=== PATIENT | male | born 1945 | race Caucasian/White ===

== ENCOUNTER 2019-03-25 04:55 | Inpatient (IN) ==
[2019-03-19 13:21] LABS: Appearance,Urine CLEAR; Bilirubin,Urine NEG (NEG); Color,Urine YELLOW; Glucose,Urine (UA) NEGATIVE (NEG); Ketones,Urine 5/TR mg/dL (NEG); Leukocyte Esterase,Urine NEG /uL (NEG); Nitrate,Urine NEG (NEG); Protein,Urine NEG (NEG); Specific Gravity,Urine 1.024 (1.000-1.035); Urine Blood NEG mg/dL (<0.03)
[2019-03-19 15:44] LABS: Basophils # (Auto) 0 K/mcL (0.0-0.3); Basophils % (Auto) 0.4 % (0.0-2.0); Eosinophils # (Auto) 0.1 K/mcL (0.0-0.7); Eosinophils % (Auto) 1.3 % (0.0-7.0); Hematocrit 41.2 % (41.0-55.0); Hemoglobin 13.7 g/dL (13.5-16.5); Lymphocytes # (Auto) 1.5 K/mcL (1.5-4.8); Lymphocytes % (Auto) 23.3 % (15.5-49.0); Mean Cell Volume 91.7 fL (80.0-100.0); Mean Corpuscular HGB Conc 33.3 g/dL (31.0-36.0); Monocytes # (Auto) 0.6 K/mcL (0.1-0.9); Platelet Count 240 K/mcL (140-440); WBC 6.6 K/mcL (4.5-11.0)
[2019-03-19 15:59] LABS: INR 1.1 (0.9-1.1); Prothrombin Time 13.8 sec (11.9-14.5)
[2019-03-19 16:10] LABS: Blood Urea Nitrogen 20 mg/dl (8-23); Calcium 9.8 mg/dl (8.6-10.4); Carbon Dioxide 25 mmol/L (22-30); Chloride 101 mmol/L (96-108); Glomerular Filtration Rate 60; Glucose 84 mg/dL (70-105)
[2019-03-25] MEDS ORDERED: SCOPOLAMINE 1 PATCH PATCH TOPICAL PRN (05:00)
[2019-03-25] MEDS ORDERED: IPRATROPIUM/ALBUTEROL 3 ML AMPUL.NEB NEB PRN ×2 (05:00→08:29)
[2019-03-25] MEDS ORDERED: ACETAMINOPHEN 500 MG TABLET PO SCH (06:00)
[2019-03-25] MEDS ORDERED: PREGABALIN 75 MG CAPSULE PO SCH (06:00)
[2019-03-25] MEDS ORDERED: ceFAZolin 2 GM in DEXTROSE 5% IN WATER 50 ML IV SCH (06:00)
[2019-03-25] MEDS ORDERED: CELECOXIB 200 MG CAPSULE PO SCH (06:00)
[2019-03-25] MEDS ORDERED: TRANEXAMIC ACID 1,000 MG/10 ML VIAL IV ONE ×2 (07:45→08:58)
[2019-03-25] MEDS ORDERED: KETAMINE 100 MG/ML ML IV ONE (07:45)
[2019-03-25] MEDS ORDERED: DEXAMETHASONE 10 MG/ML VIAL IV ONE (07:45)
[2019-03-25] MEDS ORDERED: fentaNYL 250 MCG/5 ML VIAL IV ONE (07:45)
[2019-03-25] MEDS ORDERED: GLYCOPYRROLATE 0.2 MG/ML VIAL IV ONE (07:45)
[2019-03-25] MEDS ORDERED: LIDOCAINE HCL/PF 100 MG/5 ML SYRINGE IV ONE (07:45)
[2019-03-25] MEDS ORDERED: SUCCINYLCHOLINE 20 MG/ML ML IV ONE (07:45)
[2019-03-25] MEDS ORDERED: PROPOFOL 200 MG/20 ML VIAL IV ONE (07:45)
[2019-03-25] MEDS ORDERED: MIDAZOLAM 2 MG/2 ML VIAL IV ONE (07:45)
[2019-03-25] MEDS ORDERED: ONDANSETRON 4 MG/2 ML VIAL IV ONE (07:45)
[2019-03-25] MEDS ORDERED: GENTAMICIN SULFATE 800 MG/20 ML VIAL IR ONE (08:11)
[2019-03-25] MEDS ORDERED: LACTATED RINGERS 250 ML IV PRN (08:29)
[2019-03-25] MEDS ORDERED: BENZOCAINE/MENTHOL 1 LOZENGE PO PRN ×2 (08:29→08:58)
[2019-03-25] MEDS ORDERED: NALOXONE HCL 0.4 MG/ML VIAL IV PRN (08:29)
[2019-03-25] MEDS ORDERED: HYDROmorphone 2 MG/ML VIAL IV PRN ×2 (08:29→08:58)
[2019-03-25] MEDS ORDERED: LABETALOL 5 MG/ML ML IV PRN (08:29)
[2019-03-25] MEDS ORDERED: METHOCARBAMOL 1,000 MG/10 ML VIAL IV PRN (08:29)
[2019-03-25] MEDS ORDERED: ONDANSETRON 4 MG/2 ML VIAL IV PRN ×2 (08:29→08:58)
[2019-03-25] MEDS ORDERED: FLUMAZENIL 0.1 MG/ML ML IV PRN (08:29)
[2019-03-25] MEDS ORDERED: LACTATED RINGERS 1,000 ML IV SCH (08:30)
[2019-03-25] MEDS ORDERED: BUPIVACAINE W/EPI 0.5% 50 ML VIAL IJ ONE (08:43)
[2019-03-25] MEDS ORDERED: TEMAZEPAM 15 MG CAPSULE PO PRN (08:58)
[2019-03-25] MEDS ORDERED: FLEETS ADULT ENEMA PR PRN (08:58)
[2019-03-25] MEDS ORDERED: oxyCODONE/APAP 5/325MG TABLET PO PRN (08:58)
[2019-03-25] MEDS ORDERED: ACETAMINOPHEN 325 MG TABLET PO PRN (08:58)
[2019-03-25] MEDS ORDERED: POLYETHYLENE GLYCOL 3350 17 GM PACKET PO PRN (08:58)
[2019-03-25] MEDS ORDERED: MAGNESIUM HYDROXIDE 30 ML ORAL.SUSP PO PRN (08:58)
[2019-03-25] MEDS ORDERED: BISACODYL 10 MG SUPP.RECT PR PRN (08:58)
--- NOTE | 2019-03-25 08:58 | Brief Operative Note ---
Date of procedure: 03/25/19 Pre-op diagnosis: Right shoulder fx and djd and rca Post-op diagnosis: same Procedure: Right shoulder reverse tsa with bicep tenodesis Grafts/Implants: Yes Anesthesia: GETA Complications Description: 03/25/19 08:57 none Surgeon: Alhaji Tovar Visual Effects Editor: Scott John Estimated blood loss (cc): 50 Specimens Removed/Pathology: none sent Condition: stable Disposition: PACU
[2019-03-25] MEDS ORDERED: NITROGLYCERIN 0.4 MG TAB.SUBL SL PRN (09:01)
--- NOTE | 2019-03-25 09:36 | Operative Note ---
DATE OF OPERATION: 03/25/2019 PREOPERATIVE DIAGNOSIS: Right reverse total shoulder for rotator cuff arthropathy and severe degenerative arthritis. POSTOPERATIVE DIAGNOSIS: Right reverse total shoulder for rotator cuff arthropathy and severe degenerative arthritis. PROCEDURE: Right reverse total shoulder. INDICATION FOR PROCEDURE: A 73-year-old with history of Parkinson's and a proximal humerus fracture on the right side. This has failed all conservative care, casting over the last year, with continued pain and immobility. 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 For this reason, we proceeded with surgery. SURGEON: Alhaji Tovar MD ELECTRICAL MAINTENANCE ENGINEER: Scott John PA-C. This provider's expertise and technical skill were required throughout the case. The PA assisted with preoperative coordination, intraoperative retraction, wound closure, dressing and splint application, as well as postoperative documentation and care coordination. ANESTHESIA: General LMA anesthesia. COMPLICATIONS: None. ESTIMATED BLOOD LOSS: About 50 mL. No blood products were given. IV ANTIBIOTICS: Tranexamic acid as well as preoperative antibiotics were given. IMPLANTS: [place] implants with a standard thickness poly, a 36 mm glenosphere with 2 mm of offset and 2 mm of the eccentricity, a metaglene and 3 peripheral screws measuring 32, 32 and 28, and a central screw measuring 32. DESCRIPTION OF PROCEDURE: The patient was brought to the operating room and put to sleep with general LMA anesthesia. Once asleep, the patient had the right arm sterilely prepped and draped in the usual sterile fashion. A timeout was performed. We confirmed this as the operative site by initials, consent form and x-rays. Pre-op antibiotics and tranexamic acid were given. Once done, we then placed [place] over the skin and a stockinette over the hand. We made a deltopectoral approach, and identified the cephalic vein which was retracted laterally. A Lewis retractor was placed. We subluxed the humeral head with severe deformity to the medial side where we were able to make the neck cut and align the humeral head with the shaft. Once this was made, we then subluxed the head posteriorly and we were able to prepare the glenoid 360 degree capsular release of the biceps tendon and a biceps tenodesis of the biceps tendon to the pectoralis major with an Ethibond suture. Capsular release was performed. We drilled centrally with a guide pin and then reamed up with a 40 mm reamer. We placed a metaglene 28 mm in diameter with a 32 mm central screw. Peripheral screws were measured at 32, 32 mm each and 28 mm; excellent purchase. Once placed, we then placed the glenosphere 36 mm with 2 mm of offset, 2 mm of eccentricity and tapped into place. We prepared the humerus which was broached up to the size 10 mm stem. This was somewhat difficult to countersink because of the tightness of the shoulder and immobility. Once done, we were able to trial the component. This fit very nicely and he achieved full motion. We irrigated thoroughly and placed a small amount of cement down the canal for the stem to be fixed because of the poor bone quality. The 10 mm porous ingrowth stem was tapped into place with a standard thickness poly. This was reduced without difficulty and taken through range of motion once more, achieving full motion. We irrigated thoroughly and then closed the deltopectoral interval after thorough irrigation. The skin was closed with 2-0 Vicryl and 3-0 Monocryl as well as adhesive closure. The patient tolerated this well without complication. [place]joy sling was fitted and given to the patient. RBH:curtis Job ID: [id number] Doc ID: [id number] Alhaji Tovar MD
[2019-03-25] MEDS: fentaNYL 100 MCG/2 ML VIAL IV PRN ×3 (09:38→09:45)
--- NOTE | 2019-03-25 09:58 | XRay Report ---
HISTORY: Postop right shoulder Findings: Patient has well-positioned reverse right shoulder prosthesis. On one of the two images there is a cluster of very small calcifications above the prosthetic component of the humeral head. No donor site is seen. There is no fracture. IMPRESSION: Well-positioned right shoulder prosthesis Interpreted and Authenticated by: Edmund Wong 03/25/19
[2019-03-25] MEDS: LACTATED RINGERS 1,000 ML IV SCH ×3 (10:32→21:16)
[2019-03-25] MEDS: KETOROLAC 15 MG/ML VIAL IV PRN ×2 (10:33→17:27)
[2019-03-25] MEDS: DOCUSATE SODIUM 100 MG CAPSULE PO SCH ×2 (10:34→21:00)
[2019-03-25] MEDS: CARBIDOPA/LEVODOPA 25/100 TABLET PO SCH ×2 (10:42→17:29)
[2019-03-25] MEDS: CARBIDOPA/LEVODOPA CR 25/100 TABLET PO SCH ×2 (10:43→17:29)
[2019-03-25] MEDS: 0.9 % SODIUM CHLORIDE 10 ML SYRINGE IV SCH ×2 (14:23→21:01)
[2019-03-25] MEDS: ceFAZolin 1 GM VIAL IV SCH ×2 (15:36→23:40)
[2019-03-25] MEDS: HYDROcodone/APAP 10/325MG TABLET PO PRN (19:51)
[2019-03-25] MEDS ORDERED: SENNOSIDES 1 TABLET PO SCH (21:00)
[2019-03-26] MEDS: HYDROcodone/APAP 10/325MG TABLET PO PRN ×2 (02:27→06:44)
[2019-03-26] MEDS: LACTATED RINGERS 1,000 ML IV SCH (05:32)
[2019-03-26] MEDS: 0.9 % SODIUM CHLORIDE 10 ML SYRINGE IV SCH ×2 (06:35→14:59)
--- NOTE | 2019-03-26 07:25 | Orthopedic Progress Note ---
Subjective Patient information: Note initiated : 03/26/19 at 7:24 am Service Date, if different from initiated Date: [] Patient: Jeffry Sharif 73 y/o M admitted on 03/25/19 for Right Total Shoulder Arthroplasty w/Bicep Tendon. Chief Complaint: [Pt is stable this morning on post operative day 1 without any significant concerns or complaints. Patients vital signs have remained stable. Patients dressing is dry and is grossly intact from a amira rovascular and motor standpoint. Patients 10 point ROS is otherwise negative. ] Objective Vital signs: Vital Signs Temp Pulse Resp BP BP BP Pulse Ox 03/26/19 04:00 98.0 F 72 16 111/56 94 03/25/19 23:30 97.8 F 98 H 12 131/62 95 03/25/19 19:41 97.5 F 98 H 12 131/62 96 03/25/19 15:38 97.6 F 93 H 14 153/64 94 03/25/19 13:00 97.3 F 105 H 12 111/65 97 03/25/19 12:05 92 H 130/69 96 03/25/19 11:35 100 H 140/74 98 03/25/19 11:05 89 122/62 95 03/25/19 10:50 86 118/60 95 03/25/19 10:35 92 H 126/55 97 03/25/19 10:30 91 H 14 126/55 96 03/25/19 10:05 103 H 173/71 96 03/25/19 09:53 97.4 F 93 H 10 L 144/59 98 03/25/19 09:38 97.8 F 101 H 14 187/74 98 03/25/19 09:23 101 H 12 166/71 100 03/25/19 09:13 96.6 F L 90 10 L 164/68 99 Intake and Output 03/25/19 03/26/19 03/26/19 21:59 05:59 13:59 Intake Total 1360 923 Output Total 1200 675 Balance 160 248 Intake: IV 1000 698 Lactated Ringers 1,000 ml @ 100 1000 698 mls/hr IV .Q10H IFTIKHAR Rx#: [id number] Oral 360 225 Output: Urine Catheter Amount 800 Straight 800 Void Amount 400 675 Other: Meal Dinner Percent of Meal Consumed 100% Urine Appearance Clear Clear Urine Color Bright Yellow Bright Yellow Urine Odor Normal Weight 175 lb 12.8 oz Intake & Output: Intake & Output 03/25/19 03/26/19 03/26/19 21:59 05:59 13:59 Intake Total 1360 923 Output Total 1200 675 Balance 160 248 Weight 175 lb 12.8 oz Intake: IV 1000 698 Lactated Ringers 1,000 ml @ 100 1000 698 mls/hr IV .Q10H IFTIKHAR Rx#: [id number] Oral 360 225 Output: Urine Catheter Amount 800 Straight 800 Void Amount 400 675 Other: Meal Dinner Percent of Meal Consumed 100% Urine Appearance Clear Clear Urine Color Bright Yellow Bright Yellow Urine Odor Normal Incision: Yes healing Incision clean and dry: Yes Dressing: Yes clean Weight bearing status: full Neurological exam IM: Yes motor sensory intact, Yes neurovascular intact Extremities exam IM: Yes neurovascular intact - Labs CBC & BMP: 03/19/19 12:00 03/19/19 11:59 Labs: Orthopedic Labs 03/19/19 03/19/19 11:59 11:59 PT 13.8 INR 1.1 APTT 30 03/19/19 12:00 Hgb 13.7 Hct 41.2 Assessment and Plan (1) History of reverse total replacement of right shoulder joint The patient has been educated regarding dressing care, Physical Therapy recommendations, home exercises, restrictions, and follow up appointments. The patient has had all necessary DME prescribed. The patient has remained relatively stable during their hospital course. Status: Acute
--- NOTE | 2019-03-26 07:27 | Discharge Summary ---
Ortho Discharge - TSA - Patient Instructions Diet: Regular Diet Activity: activity as tolerated, weight bearing as tolerated Total Shoulder Protocol: Leave immobilizer in place except for bathing and ROM. Abduction pillow. Continue to wear sling until seen by physician. [place] Pendulum : These exercises use momentum produced by your body to move your shoulder joint. Bend your knees and shift your weight to your front leg, then back, allowing your arm to swing in the same directions. Using the same technique, alternately shift your weight between your right and left legs, allowing your arm to swing from side to side. These exercises are also performed in counterclockwise and clockwise circular motions. Typically these exercises are performed several times per day, for a set number repetitions or minutes, such as 20 times in a row or 5 minutes at a time. Dressing Care: May shower in 2 days - Problem Maintenance (1) History of reverse total replacement of right shoulder joint Status: Acute - Follow Up Plan Disposition: Home, Self-Care Prognosis: Good Rehab Potential: Good I certify that the patient requires SNF services: No Overall status at discharge: patient is progressing back to baseline - Orders For Discharge Prescriptions: Docusate Sodium [Colace] 100 mg PO BID #60 capsule HYDROcodone/APAP 10/325MG [[place] 10-325Mg] 1 - 2 tab PO Q4HP PRN #75 tablet PRN Reason: Per Pain Protocol
[2019-03-26] MEDS: DOCUSATE SODIUM 100 MG CAPSULE PO SCH (08:17)
[2019-03-26] MEDS ORDERED: VITAMIN D3 1,000 UNIT TABLET PO SCH (09:00)
[2019-03-26] MEDS ORDERED: CLOPIDOGREL 75 MG TABLET PO SCH (09:00)
[2019-03-26] MEDS ORDERED: ASPIRIN 81 MG TAB.CHEW PO SCH (09:00)
[2019-03-26] MEDS ORDERED: EZETIMIBE 10 MG TABLET PO SCH (09:00)
[2019-03-26] MEDS ORDERED: FLU VACC QS2019-20(6MOS UP)/PF 60 MCG/0.5 ML SYRINGE IM ONE (10:00)
[2019-03-26] MEDS: CARBIDOPA/LEVODOPA CR 25/100 TABLET PO SCH ×2 (10:17→12:25)
[2019-03-26] MEDS: CARBIDOPA/LEVODOPA 25/100 TABLET PO SCH ×2 (10:17→12:25)
[2019-03-26] MEDS: KETOROLAC 15 MG/ML VIAL IV PRN (12:25)
[2019-03-26] MEDS ORDERED: SIMVASTATIN 40 MG TABLET PO SCH (21:00)
[2019-03-27] MEDS ORDERED: DOMPERIDONE 10 MG PO SCH (09:00)
== END 2019-03-26 14:20 | disposition home or self-care (01) | DRG 483 ==
LOC: MEDSUR 04:55
PROVIDERS: ADMIT Orthopaedic Surgery; ATTEND Orthopaedic Surgery

== ENCOUNTER 2020-01-05 12:48 | Inpatient (IN) ==
--- NOTE | 2020-01-05 13:44 | XRay Report ---
INDICATION: fall 5 days ago. pain at mid axilla left TECHNIQUE: PA chest x-ray. Oblique views of the left ribs. COMPARISON: None. FINDINGS: Fractures of the left fourth and fifth ribs posterolaterally. These are slightly displaced. Large left pneumothorax with virtually complete collapse of the left lung. There is only a small left pleural effusion consistent with hemothorax No evidence for tension pneumothorax. Right lung is normal. Heart size and mediastinum are normal. IMPRESSION: 1. Fractures of the left fourth and fifth ribs 2. Large left pneumothorax with virtually complete collapse of the left lung 3. Small left hemothorax 4. No tension pneumothorax. Interpreted and Authenticated by: Zach Perdomo 01/05/20
--- NOTE | 2020-01-05 13:51 | Emergency Department Note ---
HPI General Chief complaint: Rib Pain Stated complaint: rib pain Time Seen by Provider: 01/05/20 17:53 Source: patient and family Mode of arrival: ambulatory Limitations: no limitations History of Present Illness HPI Narrative: Narrative: 74-year-old male patient presents emergency department accompanied by his with chief complaint of persistent left chest wall pain x5 days. Patient has known history of Parkinson's disease. He got up in the middle the night 5 days ago and stumbled. During this time he fell onto a hardwood floor. This caused exquisite pain to his left chest wall. He has been treating at home with occasional doses of acetaminophen and ibuprofen without relief. He denies hitting his head or loss of consciousness. ROS: Denies systemic illness, fever, sweats, chills. Denies headaches, tinnitus, or vision changes. Denies runny nose, sinus congestion, or cough. Denies shortness of breath. Denies retrosternal chest pain or palpitations. Denies abdominal pain, nausea, vomiting, or diarrhea. Denies dysuria, hematuria, urinary frequency, or urinary urgency. Admits to generalized weakness. Related Data Home Medications Medication Instructions Recorded Confirmed aspirin 81 mg PO DAILY 03/18/19 01/05/20 clopidogrel 75 mg PO DAILY 03/18/19 01/05/20 ezetimibe 10 mg PO Q48 03/18/19 01/05/20 lorazepam 1 mg PO DAILYP PRN 03/18/19 01/05/20 nitroglycerin 0.4 mg SL PRN PRN 03/18/19 01/05/20 simvastatin 80 mg PO Q48@2100 03/18/19 01/05/20 Domperidone 1 tab PO BID 03/19/19 01/05/20 carbidopa-levodopa 1 tab PO TID@0800,1200,1700 03/19/19 01/05/20 carbidopa-levodopa 1.5 tab PO TID@0800,1200,1700 03/19/19 01/05/20 ciprofloxacin HCl 250 mg PO BID 01/05/20 01/05/20 ondansetron HCl 4 mg PO BID 01/05/20 01/05/20 tolterodine 2 mg PO HS 01/05/20 01/05/20 Previous Rx's Medication Instructions Recorded docusate sodium 100 mg PO BID #60 cap 03/26/19 Allergies Allergy/AdvReac Type Severity Reaction Status Date / Time ticagrelor [From Brilinta] Allergy Severe Difficulty Verified 01/05/20 12:50 Breathing atorvastatin [From Lipitor] AdvReac Intermediate Muscle Pain Verified 01/05/20 12:50 metoprolol AdvReac Intermediate Confusion Verified 01/05/20 12:50 oxybutynin AdvReac Intermediate Hallucinati Verified 01/05/20 12:50 ng oxycodone AdvReac Mild Hallucinati Verified 01/05/20 12:50 ng Review of Systems ROS ROS Narrative: Narrative: All systems ED: reviewed and negative except as stated. 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, with behavioral disturbance (Acute) Coronary artery disease (Acute) Traumatic fracture of ribs of left side with pneumothorax (Acute) Closed traumatic fracture of ribs of left side with pneumothorax (Acute) Parkinson's disease (Acute) History of reverse total replacement of right shoulder joint (Acute) Medical History (Updated 01/05/20 @ 17:54 by Vipul Stein PA-C) Amputation of left hand (Acute) Carcinoma of prostate (Acute) Coronary artery disease (Acute) Degenerative joint disease (Acute) Loose total arthroplasty of both knees (Acute) Parkinson's disease (Acute) Traumatic amputation of left forearm (Acute) Surgical History (Updated 01/05/20 @ 16:31 by Cecily Otero MD) History of appendectomy (Acute) History of arthroplasty of right shoulder (Acute) Family History (Updated 01/05/20 @ 16:33 by Cecily Otero MD) Father , hypertension No problems noted. Mother No problems noted. Social History Smoking Status: Never smoker Exam Narrative Narrative: Narrative: General Limitations: no limitations General appearance: other (Well-developed, well-nourished, 74-year-old male patient sitting upright on the emergency room gurney in no acute respiratory distress. He is speaking softly but in complete sentences. No accessory muscle use. No nasal flaring.) Head Head: atraumatic and normocephalic Eye Eye: Present normal appearance, PERRL and EOMI; Absent scleral icterus and conjunctival injection ENT ENT: Present normal oropharynx and mucous membranes moist Neck Neck: Present trachea midline; Absent lymphadenopathy and thyromegaly Chest Chest: Present normal inspection, symmetric chest wall rise and tenderness (Left chest wall) Respiratory Respiratory: Present decreased breath sounds (Slight decreased breath sounds heard to the left versus right.); Absent normal lung sounds bilaterally, respiratory distress, rales/crackles, wheezes, stridor, accessory muscle use and prolonged expiratory phase Cardiovascular Cardiovascular: Present regular rate and normal rhythm; Absent systolic murmur and diastolic murmur Adbominal Abdominal: Present soft; Absent distention, tenderness, guarding, rebound, rigidity, organomegaly and mass Extremities Extremities: Present full ROM and normal capillary refill; Absent normal inspection (Left lower arm prosthetic in place.), tenderness and pedal edema Back Back: Present normal inspection and full ROM; Absent tenderness Neurological Neurological: Present alert and oriented X3 Psychiatric Psychiatric: Present normal affect and normal mood Skin Skin: Present warm, dry and normal color Course Course Course Narrative: Left rib x-rays were obtained upon arrival and read by the radiologist as fractures of the left fourth and fifth ribs. There is a large left pneumothorax with virtually complete collapse of left lung. Radiologist does mention a small developing left hemothorax. There is no evidence of tension pneumothorax. Patient is incredibly stable considering having his left lung completely collapsed. He is not hypoxic nor in any form of respiratory distress. He is hemodynamically stable with good vital signs. After noting the patient's large left pneumothorax I discussed the case briefly my collaborating physician (Dr. Martin) who advised me to discussed this with the radiologist for possible pigtail chest tube placement. I reached out to the radiologist (Dr. Perdomo) I discussed pigtail placement with him. He informed me that the radiology fluoroscopy device. He mentioned that reaching out to the general surgeon for blind insertion of a chest tube. With this in mind, I reached out to her general surgeon (Dr. Otero) and discussed chest tube placement with him. At this time requested chest tube placement equipment and that he would be down shortly to evaluate the patient. Routine admission laboratory studies were also ordered. Reevaluation(s) Reevaluation #1: Dr. Otero arrived at the patient's bedside and evaluate the patient. At this time Dr. Otero placed a chest tube into the left chest. Please see his dictated procedure note. Patient has remained incredibly stable throughout this entire time. Dr. Otero has consented to admit the patient here to our facility under his care. Post chest tube insertion radiographs are pending. At this time all further treatment decisions, modalities, and ultimate patient disposition is going be carried out by Dr. Otero. Vital Signs Vital signs: Vital Signs Temperature 97.9 F 01/05/20 12:55 Pulse Rate 104 H 01/05/20 12:55 Respiratory Rate 14 01/05/20 12:55 Blood Pressure 94/57 01/05/20 12:55 Pulse Oximetry (%) 95 01/05/20 12:55 Temperature 97.9 F 01/05/20 18:03 Pulse Rate 70 01/05/20 18:03 Respiratory Rate 14 01/05/20 18:03 Blood Pressure 154/79 01/05/20 18:03 Pulse Oximetry (%) 95 01/05/20 18:03 [facility] MDM Narrative Medical decision making narrative: Narrative: Radiology Data Radiology results reviewed: Yes I reviewed the patient's radiology results. Radiology results narrative: Ordering Physician: Nick Martin M.D. Date of Service: 01/05/20 Procedure(s): XR ribs LT w/ PA chest Accession Number(s): [id number] INDICATION: fall 5 days ago. pain at mid axilla left TECHNIQUE: PA chest x-ray. Oblique views of the left ribs. COMPARISON: None. FINDINGS: Fractures of the left fourth and fifth ribs posterolaterally. These are slightly displaced. Large left pneumothorax with virtually complete collapse of the left lung. There is only a small left pleural effusion consistent with hemothorax No evidence for tension pneumothorax. Right lung is normal. Heart size and mediastinum are normal. IMPRESSION: 1. Fractures of the left fourth and fifth ribs 2. Large left pneumothorax with virtually complete collapse of the left lung 3. Small left hemothorax 4. No tension pneumothorax. Interpreted and Authenticated by: Zach Perdomo 01/05/20 Discharge Plan Patient/Caregiver Discharge Instructions Pt seen by CENTRAL SCHEDULER/PA only: No (Dr. Martin / Dr. Otero) Clinical Impression: Closed traumatic fracture of ribs of left side with pneumothorax, Parkinson's disease Patient Disposition: Xfer As Inpt ([facility]) Condition: Good Discharge Date/Time: 01/05/20 17:55
--- NOTE | 2020-01-05 15:51 | XRay Report ---
INDICATION: chest tube for treatment of left pneumothorax TECHNIQUE: AP portable semiupright chest x-ray COMPARISON: None FINDINGS:Status post placement of a left-sided chest tube. Chest tube tip is overlying the left lung apex. Lungs:Left lung is reexpanded with some residual left basilar atelectasis. Pneumothorax is resolved. There is mild subcutaneous emphysema. Heart, vascular:No significant cardiomegaly. Pulmonary vascularity is normal. No pulmonary edema or pulmonary congestion Mediastinum, audrey:No mediastinal widening. No hilar mass Pleura:No residual left pneumothorax identified Skeletal:Negative. IMPRESSION: 1. Status post left chest tube placement. Complete evacuation of left pneumothorax 2. Mild residual left basilar atelectasis Interpreted and Authenticated by: Zach Perdomo 01/05/20
--- NOTE | 2020-01-05 16:20 | General Surgery Procedure Note ---
Date of procedure: Note initiated : 01/05/20 at 4:14 pm Service Date, if different from initiated Date: [] Pre-op diagnosis: left pneumothorax without tension Post-op diagnosis: other (left total pneumothorax) Procedure: left closed tube thoracostomy Findings: total collapse left lung without shift of mediastinum; Grafts/Implants: #24 straight [place] chest tube Anesthesia: local (1% Xylocaine intercostal block) Surgeon: Cecily Otero Pathology: none sent Description of procedure: I was asked to evaluate patient for pneumothorax. History given is that he fell 5 days ago and fractured his fourth and fifth rib. He had complained of increasing cough and shortness of breath along with rib pain. Chest x-ray shows total pneumothorax on the left Preop diagnosis--- left total pneumothorax Postoperative diagnosis-----left total pneumothorax Procedure----left closed tube thoracostomy Anesthesia--- 1% Xylocaine intercostal block Specimen--- none Complications none To follow-up chest x-rays shows complete reexpansion of the left lung except for small fluid collection at the base posteriorly Condition: stable Disposition: floor
[2020-01-05] MEDS ORDERED: ONDANSETRON 4 MG/2 ML VIAL IV PRN (16:40)
--- NOTE | 2020-01-05 16:40 | General Surg History&Physical ---
HPI History of Present Illness Patient information: Note initiated : 01/05/20 at 4:20 pm Service Date, if different from initiated Date: [] Patient: Jeffry Sharif a 74 y/o M admitted on for rib pain. Chief Complaint: [] Chief complaint: left chest pain and shortness of breath History of present illness: Mr. Sharif is a 74 year old M seen in the emergency room for evaluation of left total pneumothorax. Patient fell at home about 5 days ago and has had increasing left-sided chest pain and shortness of breath. He is also had increasing difficulty with cough. X-ray reveals total collapse of left lung. Patient was counseled and left closed tube thoracostomy was performed uneventfully. He is admitted and will be followed until he has no pleural air leak. Constitutional Constitutional: Present daytime sleepiness, fatigue, frequent falls, lethargy, malaise, weakness and weight loss Cardiovascular Cardiovascular: Present chest pain at rest, chest pain with activity, dyspnea, dyspnea on exertion, lightheadedness and palpatations Respiratory Respiratory: Present cough, dyspnea, pain on inspirtation and pain with cough Gastrointestinal Gastrointestinal: Absent abdominal pain, cramping, dyspepsia and heartburn Genitourinary Genitourinary: change in urinary stream, difficulty urinating, nocturia, urinary frequency, urinary hesitancy, urinary incontinence and urinary urgency Musculoskeletal Musculoskeletal: Present abnormal gait, arthralgias, limited range of motion, muscle cramps, muscle weakness, myalgias and stiffness Integumentary Integumentary: Present unusual bruising (abrasion right lower mota); Absent new lesions, pruritus and rash Neurological Neurological: Present abnormal gait, abnormal speech, disequilibrium, dizziness, focal weakness, frequent falls, lack of coordination, restless legs, tremor(s) and vertigo Psychiatric Psychiatric: Present abnormal sleep pattern, depression and memory loss Endocrine Endocrine: Present fatigue Hematologic/Lymphatic Hematologic/Lymphatic: Absent easy bleeding, easy bruising and lymphadenopathy Allergic/Immunologic Allergic/Immunologic: Absent tongue swelling, throat swelling, uticaria, wheezing and lip swelling PFSH PFSH All Active Problems (Updated 01/06/20 @ 13:01 by Cecily Otero MD) 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, with behavioral disturbance (Chronic) Coronary artery disease (Acute) Traumatic fracture of ribs of left side with pneumothorax (Acute) Closed traumatic fracture of ribs of left side with pneumothorax (Acute) Parkinson's disease (Acute) Medical History (Updated 01/06/20 @ 13:01 by Cecily Otero MD) Carcinoma of prostate (Acute) Coronary artery disease (Acute) Degenerative joint disease (Acute) Loose total arthroplasty of both knees (Acute) Parkinson's disease (Acute) Traumatic amputation of left forearm (Acute) Surgical History (Updated 01/06/20 @ 13:01 by Cecily Otero MD) Amputation of left hand (Acute) History of appendectomy (Acute) History of arthroplasty of right shoulder (Acute) 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 Mother No problems noted. Social History (Updated 01/05/20 @ 16:34 by Cecily Otero MD) household members: spouse housing: house lives independently: No marital status: education level: high school occupational status: disabled hx recent travel: No sexually active: No smoking status: Never smoker alcohol intake frequency: holiday/special occasion only substance use type: does not use MEDS/ALLERGIES Home Medications and Allergies Home Medications Medication Instructions Recorded Confirmed Type aspirin 81 mg PO DAILY 03/18/19 01/05/20 History clopidogrel 75 mg PO DAILY 03/18/19 01/05/20 History ezetimibe 10 mg PO Q48 03/18/19 01/05/20 History lorazepam 1 mg PO DAILYP PRN 03/18/19 01/05/20 History nitroglycerin 0.4 mg SL PRN PRN 03/18/19 01/05/20 History simvastatin 80 mg PO Q48@2100 03/18/19 01/05/20 History Domperidone 1 tab PO BID 03/19/19 01/05/20 History carbidopa-levodopa 1 tab PO TID@0800,1200,1700 03/19/19 01/05/20 History carbidopa-levodopa 1.5 tab PO TID@0800,1200,1700 03/19/19 01/05/20 History docusate sodium 100 mg PO BID #60 cap 03/26/19 01/05/20 Rx ciprofloxacin HCl 250 mg PO BID 01/05/20 01/05/20 History ondansetron HCl 4 mg PO BID 01/05/20 01/05/20 History tolterodine 2 mg PO HS 01/05/20 01/05/20 History Allergies Allergy/AdvReac Type Severity Reaction Status Date / Time ticagrelor [From Brilinta] Allergy Severe Difficulty Verified 01/05/20 12:50 Breathing atorvastatin [From Lipitor] AdvReac Intermediate Muscle Pain Verified 01/05/20 12:50 metoprolol AdvReac Intermediate Confusion Verified 01/05/20 12:50 oxybutynin AdvReac Intermediate Hallucinati Verified 01/05/20 12:50 ng oxycodone AdvReac Mild Hallucinati Verified 01/05/20 12:50 ng Physical Examination Vital Signs Vital signs: Temp Pulse Resp BP Pulse Ox 97.9 F 84 17 132/73 96 01/05/20 12:55 01/05/20 16:01 01/05/20 16:01 01/05/20 16:01 01/05/20 16:01 General physical appearance General physical exam: moderate distress and moderate pain Eyes Eye exam: PERRL and normal ocular movement ENT ENT exam: normal mucosa and decreased hearing Head Head exam IM: Present atraumatic, normal inspection and normocephalic Neck Neck exam: no masses, no bruits, trachea midline, no lymphadenopathy and no venous distension Cardiovascular Cardiovascular exam IM: Present normal rate and rhythm, RRR, +S1 and +S2; Absent JVD Respiratory Respiratory exam: normal expansion, normal respiratory effort, clear to percussion and clear to auscultation Abdomen Abdomen: Present soft, non tender and bowel sounds (normal bowel sounds) Integumentary Integumentary: Present other (superficial abrasion right lower extremity anteriorly) Neurologic Neurologic: Present other (cog-wheel rigidity of extremities;) Musculoskeletal Musculoskeletal: Present other (severely limited gait due to Parkinson's disease) Psychiatric Psychiatric: Present oriented to time, oriented to person, oriented to place and memory intact; Absent speech is normal Results Labs Result diagrams: 01/06/20 05:10 Labs: All other labs normal. A/P Assessment and plan (1) Closed traumatic fracture of ribs of left side with pneumothorax: Status: Acute (2) Parkinson's disease: Status: Acute (3) Coronary artery disease: Status: Acute Qualifiers: Coronary Disease-Associated Artery/Lesion type: due to calcified coronary lesion Qualified Code(s): I25.10 - Atherosclerotic heart disease of [place] coronary artery without angina pectoris; I25.84 - Coronary atherosclerosis due to calcified coronary lesion (4) Traumatic fracture of ribs of left side with pneumothorax: Status: Acute Narrative A/P Narrative: chest tube to continuous water seal and 20 cm suction Oral and IV analgesics as needed Daily chest x-ray as needed Continue home meds Time Spent With Patient Time: Total time spent is greater than 50% in coordination of care (as documented) at patient's floor/unit and/or counseling patient:
[2020-01-05] MEDS ORDERED: HYDROmorphone 0.5 MG/0.5 ML SYRINGE IV ONE (16:46)
[2020-01-05] MEDS ORDERED: NITROGLYCERIN 0.4 MG TAB.SUBL SL PRN (18:06)
[2020-01-05] MEDS: HYDROmorphone 1 MG/ML SYRINGE IV PRN ×2 (18:09→22:05)
[2020-01-05] MEDS: CARBIDOPA/LEVODOPA CR 25/100 TABLET PO SCH (18:30)
[2020-01-05] MEDS: oxyCODONE HCL 5 MG TABLET PO PRN (18:55)
[2020-01-05] MEDS ORDERED: ACETAMINOPHEN 1,000 MG/100 ML BOTTLE IV ONE (18:57)
[2020-01-05] MEDS ORDERED: ONDANSETRON HCL 4 MG PO SCH (21:00)
[2020-01-05] MEDS ORDERED: TOLTERODINE 2 MG CAP.XL.24H PO SCH (21:00)
[2020-01-05] MEDS ORDERED: ZOLPIDEM 5 MG TABLET PO PRN (21:00)
[2020-01-05] MEDS: DOMPERIDONE 10 MG PO SCH (21:01)
[2020-01-05] MEDS: SENNOSIDES 1 TABLET PO SCH (21:01)
[2020-01-05] MEDS: DOCUSATE SODIUM 100 MG CAPSULE PO SCH (21:01)
[2020-01-05] MEDS: CIPROFLOXACIN 250 MG TABLET PO SCH (21:01)
[2020-01-05] MEDS: 0.9 % SODIUM CHLORIDE 10 ML SYRINGE IV SCH (22:05)
[2020-01-06] MEDS: oxyCODONE HCL 5 MG TABLET PO PRN ×3 (00:04→10:38)
[2020-01-06] MEDS: ACETAMINOPHEN 1,000 MG/100 ML BOTTLE IV PRN ×3 (03:00→23:16)
[2020-01-06] MEDS: 0.9 % SODIUM CHLORIDE 10 ML SYRINGE IV SCH ×3 (04:29→20:37)
[2020-01-06 06:10] LABS: Basophils # (Auto) 0.04 K/mcL (0.00-0.30); Basophils % (Auto) 0.5 % (0.0-2.0); Eosinophils # (Auto) 0.35 K/mcL (0.00-0.70); Eosinophils % (Auto) 4.4 % (0.0-7.0); Granulocytes % (Auto) 69.3 % (38.0-78.0); Hematocrit 32.6 % (40.1-51.0); Hemoglobin 10.8 g/dL (13.7-17.5); Lymphocytes # (Auto) 1.27 K/mcL (1.50-4.80); Lymphocytes % (Auto) 15.8 % (15.5-49.0); Mean Cell Volume 89.6 fL (80.0-100.0); Mean Corpuscular HGB Conc 33.1 g/dL (31.0-36.0); Mean Platelet Volume 8.8 fL (7.4-10.4); Platelet Count 206 K/mcL (140-440); RBC 3.64 M/mcL (4.63-6.08); Red Cell Distribution Width 12.4 % (11.5-14.5)
--- NOTE | 2020-01-06 06:49 | XRay Report ---
INDICATION: follow-up of left pneumothorax TECHNIQUE: AP portable semiupright chest x-ray COMPARISON: Previous chest x-rays dated 01/05/2020 FINDINGS:There is a left-sided chest tube with its tip directed toward the apex. Lungs:Mild density at the left lung base consistent with volume loss. No significant interval change. Right lung remains negative. Heart, vascular:No significant cardiomegaly. Pulmonary vascularity is normal. No pulmonary edema or pulmonary congestion Mediastinum, audrey:No mediastinal widening. No hilar mass Pleura:No left pneumothorax identified. Skeletal:Patient has a history of left fourth and fifth rib fractures. Fifth rib fracture is obscured by overlying stimulator device. IMPRESSION: 1. No left pneumothorax 2. Mild left basilar density consistent with volume loss Interpreted and Authenticated by: Zach Perdomo 01/06/20
[2020-01-06] MEDS: CARBIDOPA/LEVODOPA 25/100 TABLET PO SCH ×2 (07:38→11:52)
[2020-01-06] MEDS: PANTOPRAZOLE 40 MG TABLET PO SCH (07:38)
[2020-01-06] MEDS: DOCUSATE SODIUM 100 MG CAPSULE PO SCH ×2 (08:05→20:36)
[2020-01-06] MEDS: CLOPIDOGREL 75 MG TABLET PO SCH (08:05)
[2020-01-06] MEDS: ASPIRIN 81 MG TAB.CHEW PO SCH (08:05)
[2020-01-06] MEDS: CARBIDOPA/LEVODOPA CR 25/100 TABLET PO SCH ×3 (08:05→17:35)
[2020-01-06] MEDS: CIPROFLOXACIN 250 MG TABLET PO SCH ×2 (08:05→20:37)
[2020-01-06] MEDS ORDERED: POLYETHYLENE GLYCOL 3350 17 GM PACKET PO SCH (09:00)
[2020-01-06] MEDS: EZETIMIBE 10 MG TABLET PO SCH (10:38)
[2020-01-06] MEDS: DOMPERIDONE 10 MG PO SCH ×2 (11:51→20:35)
--- NOTE | 2020-01-06 13:27 | General Surgery Progress Note ---
SUBJECTIVE Subjective Patient information: Note initiated : 01/06/20 at 1:21 pm Service Date, if different from initiated Date: [] Patient: Jeffry Sharif 74 y/o M admitted on 01/05/20 for rib pain. Chief Complaint: [] Interval history: Patient continues to improve. He still has mild cough but denies shortness of breath. He has moderate chest pain. His Pleur-evac shows a very small air leak. Chest x-ray today shows full expansion of his lung with decrease in the amount of pleural effusion. White blood count 8, hemoglobin 10.8, hematocrit 32.6. The patient is complaining of increasing difficulty with voiding and he has over 600 cc postvoid residual. He has a history of prostatitis and is on ciprofloxacin. His urine will be rechecked today. Constitutional Vitals: Vital Signs Temp Pulse Resp BP Pulse Ox 100.1 F H 100 H 18 134/72 91 01/06/20 12:00 01/06/20 12:00 01/06/20 12:00 01/06/20 12:00 01/06/20 12:00 Period Temp Pulse Resp BP Sys/Lopez Pulse Ox Last 24 Hr 97.8 F-100.1 F 68-102 14-22 100-157/59-83 91-96 Intake and Output 01/05/20 01/06/20 01/06/20 21:59 05:59 13:59 Intake Total 100 800 100 Output Total 10 207 Balance 90 593 100 Weight 173 lb 173 lb Patient Weight 01/07/20 05:59 Weight 173 lb Intake & Output: Intake & Output 01/05/20 01/06/20 01/06/20 21:59 05:59 13:59 Intake Total 100 800 100 Output Total 10 207 Balance 90 593 100 Weight 173 lb 173 lb Intake: IV 100 100 100 OFIRMEV 1,000 mg In 100 ml @ 0 100 mls/hr IV .K-MED ONE Rx#: [id number] Oral 700 Output: Chest Tube Drainage 7 Left Upper Lateral Chest 7 Void Amount 10 200 Other: Urine Appearance Clear Condom Clear Urine Color Dark Yellow Dark Yellow Condom Dark Yellow Urine Odor Normal Condom Normal Head Head exam: Present atraumatic, normal inspection and normocephalic Eye Eye exam: Present EOMI and normal appearance Pupils: Present normal accommodation and PERRL ENT ENT exam: Present normal exam and normal oropharynx Neck Neck exam: Present full ROM; Absent lymphadenopathy, tenderness and thyromegaly Respiratory Respiratory exam: Present CTAB; Absent rales, rhonchi and wheezes Cardiovascular Cardiovascular exam: Present RRR, +S1 and +S2; Absent gallop and JVD GI/Abdominal GI/Abdominal exam: Present normal bowel sounds and soft; Absent distended and tenderness Extremities Exam Extremities exam: Present full ROM and neurovascular intact; Absent pedal edema Back Exam Back exam: Absent tenderness Neurological Exam Neurological exam: Present abnormal gait, alert, CN II-XII intact and oriented X3; Absent motor sensory deficit and normal gait Psychiatric Psychiatric exam: Present anxious, depressed and flat affect Skin Skin exam: Absent erythema and rash A/P Assessment and plan (1) Closed traumatic fracture of ribs of left side with pneumothorax: Status: Acute (2) Coronary artery disease: Status: Acute Qualifiers: Coronary Disease-Associated Artery/Lesion type: due to calcified coronary lesion Qualified Code(s): I25.10 - Atherosclerotic heart disease of [place] coronary artery without angina pectoris; I25.84 - Coronary atherosclerosis due to calcified coronary lesion (3) 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, with behavioral disturbance: Status: Chronic Narrative A/P Narrative: Patient will be continued on waterseal with suction Inspire care will be added Urine analysis will be rechecked Follow-up chest x-ray tomorrow Flomax 0.4 mg twice daily Time Spent With Patient Time: Total time spent is greater than 50% in coordination of care (as documented) at patient's floor/unit and/or counseling patient:
[2020-01-06] MEDS ORDERED: [UNRECOGNIZED DRUG - OTHER] INH SCH (14:00)
[2020-01-06] MEDS: SIMVASTATIN 40 MG TABLET PO SCH (20:36)
[2020-01-06] MEDS: SENNOSIDES 1 TABLET PO SCH (20:36)
[2020-01-06] MEDS: TOLTERODINE 4 MG PO SCH (20:36)
[2020-01-06] MEDS: TAMSULOSIN 0.4 MG CAPSULE PO SCH (20:36)
[2020-01-07] MEDS: 0.9 % SODIUM CHLORIDE 10 ML SYRINGE IV SCH ×3 (05:01→20:08)
--- NOTE | 2020-01-07 06:53 | XRay Report ---
INDICATION: follow-up of left pneumothorax TECHNIQUE: AP portable semiupright chest x-ray COMPARISON: Previous chest x-rays dated 01/06/2020, 01/05/2020 FINDINGS:No change in position of left-sided chest tube. Lungs:Mild right basilar density consistent with atelectasis. Lungs are otherwise negative Heart, vascular:No significant cardiomegaly. Pulmonary vascularity is normal. No pulmonary edema or pulmonary congestion Mediastinum, audrey:No mediastinal widening. No hilar mass Pleura:No detectable left pneumothorax. Skeletal:Negative. IMPRESSION: 1. No left pneumothorax 2. Mild right basilar atelectasis Interpreted and Authenticated by: Zach Perdomo 01/07/20
[2020-01-07] MEDS: CARBIDOPA/LEVODOPA 25/100 TABLET PO SCH ×2 (07:21→12:03)
[2020-01-07] MEDS: CARBIDOPA/LEVODOPA CR 25/100 TABLET PO SCH ×3 (07:21→16:09)
[2020-01-07] MEDS: PANTOPRAZOLE 40 MG TABLET PO SCH (07:21)
[2020-01-07] MEDS ORDERED: POLYETHYLENE GLYCOL 3350 17 GM PACKET PO SCH (09:00)
[2020-01-07] MEDS: CIPROFLOXACIN 250 MG TABLET PO SCH ×2 (09:46→20:07)
[2020-01-07] MEDS: ASPIRIN 81 MG TAB.CHEW PO SCH (09:46)
[2020-01-07] MEDS: TAMSULOSIN 0.4 MG CAPSULE PO SCH ×2 (09:46→20:06)
[2020-01-07] MEDS: CLOPIDOGREL 75 MG TABLET PO SCH (09:47)
[2020-01-07] MEDS: DOMPERIDONE 10 MG PO SCH ×2 (09:47→20:05)
[2020-01-07] MEDS: DOCUSATE SODIUM 100 MG CAPSULE PO SCH ×2 (09:47→20:06)
[2020-01-07] MEDS ORDERED: BISACODYL 10 MG SUPP.RECT PR PRN (11:57)
[2020-01-07 12:24] LABS: Appearance,Urine HAZY; Bacteria,Urine 0 /hpf (0); Bilirubin,Urine NEG (NEG); Color,Urine YELLOW; Culture Indicated,Urine NO; Glucose,Urine (UA) NEGATIVE (NEG); Ketones,Urine 5/TR mg/dL (NEG); Leukocyte Esterase,Urine NEG /uL (NEG); Nitrate,Urine NEG (NEG); Protein,Urine 30 mg/dL (NEG); Urine Blood >=1.0 mg/dL (<0.03); Urine RBC > 182 /hpf (0-1); Urine Squamous Epithelial Cell 0 /hpf (0-4); Urine WBC 4 /hpf (0-4)
[2020-01-07] MEDS: ACETAMINOPHEN 1,000 MG/100 ML BOTTLE IV PRN (13:50)
--- NOTE | 2020-01-07 15:00 | General Surgery Progress Note ---
SUBJECTIVE Subjective Patient information: Note initiated : 01/07/20 at 2:56 pm Service Date, if different from initiated Date: [] Patient: Jeffry Sharif 74 y/o M admitted on 01/05/20 for rib pain. Chief Complaint: [] Principal diagnosis: left chest wall pain; left pneumothorax Interval history: patient is clinically stable however he still has significant chest wall pain from his rib fractures. There is a small air leak in his low back. It does not increase significantly with cough or Valsalva. Constitutional Vitals: Vital Signs Temp Pulse Resp BP Pulse Ox 98.8 F 97 H 12 95/60 94 01/07/20 12:00 01/07/20 12:00 01/07/20 12:00 01/07/20 12:00 01/07/20 12:00 Period Temp Pulse Resp BP Sys/Lopez Pulse Ox Last 24 Hr 97.8 F-99.0 F 80-114 12-16 95-185/60-80 93-94 Intake and Output 01/07/20 01/07/20 01/07/20 05:59 13:59 21:59 Intake Total 800 960 240 Output Total 581 Balance 219 960 240 Intake & Output: Intake & Output 01/07/20 01/07/20 01/07/20 05:59 13:59 21:59 Intake Total 800 960 240 Output Total 581 Balance 219 960 240 Intake: IV 100 Oral 700 960 240 Output: Drainage 31 Left Chest 31 Urine Catheter Amount 550 Other: Meal Breakfast Breakfast Percent of Meal Consumed 50% 100% Feeding Ability Independent Urine Appearance Clear Cloudy Straight Cloudy Urine Color Tea Colored Dark Yellow Blood Tinged Straight Dark Yellow Blood Tinged Stool Size Large Stool Color Brown Stool Consistency Formed # Bowel Movements 1 Head Head exam: Present atraumatic, normal inspection and normocephalic Eye Eye exam: Present EOMI and normal appearance Pupils: Present normal accommodation and PERRL ENT ENT exam: Present normal exam and normal oropharynx Neck Neck exam: Present full ROM; Absent lymphadenopathy, tenderness and thyromegaly Respiratory Respiratory exam: Present CTAB; Absent rales, rhonchi and wheezes Cardiovascular Cardiovascular exam: Present RRR, +S1 and +S2; Absent gallop and JVD GI/Abdominal GI/Abdominal exam: Present normal bowel sounds and soft; Absent distended and tenderness Extremities Exam Extremities exam: Present full ROM and neurovascular intact; Absent pedal edema Neurological Exam Neurological exam: Present abnormal gait, alert, CN II-XII intact and oriented X3; Absent motor sensory deficit and normal gait Psychiatric Psychiatric exam: Present anxious, depressed and flat affect Skin Skin exam: Absent erythema and rash A/P Assessment and plan (1) Closed traumatic fracture of ribs of left side with pneumothorax: Status: Acute (2) 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, with behavioral disturbance: Status: Chronic (3) Coronary artery disease: Status: Acute Qualifiers: Coronary Disease-Associated Artery/Lesion type: due to calcified coronary lesion Qualified Code(s): I25.10 - Atherosclerotic heart disease of [place] coronary artery without angina pectoris; I25.84 - Coronary atherosclerosis due to calcified coronary lesion Narrative A/P Narrative: continue all continuous suction at 20 cm water Follow-up chest x-ray tomorrow Encourage ambulation with assistance Time Spent With Patient Time: Total time spent is greater than 50% in coordination of care (as documented) at patient's floor/unit and/or counseling patient:
[2020-01-07] MEDS: TOLTERODINE 4 MG PO SCH (20:05)
[2020-01-07] MEDS: POLYETHYLENE GLYCOL 3350 17 GM PACKET PO SCH (20:06)
[2020-01-07] MEDS: SENNOSIDES 1 TABLET PO SCH (20:07)
[2020-01-07] MEDS: LORazepam 1 MG TABLET PO PRN (20:07)
[2020-01-08] MEDS: ACETAMINOPHEN 1,000 MG/100 ML BOTTLE IV PRN ×2 (00:51→12:46)
[2020-01-08] MEDS: 0.9 % SODIUM CHLORIDE 10 ML SYRINGE IV SCH ×3 (04:42→20:32)
--- NOTE | 2020-01-08 07:14 | XRay Report ---
INDICATION: follow-up of left pneumothorax TECHNIQUE: AP portable semiupright chest x-ray COMPARISON: Previous chest x-rays dated 01/07/2020, 01/06/2020, 01/05/2020 FINDINGS:No change in left apical chest tube Lungs:Mild bibasilar parenchymal density consistent with atelectasis. Findings are essentially unchanged. No new parenchymal infiltrate or mass Heart, vascular:No significant cardiomegaly. Pulmonary vascularity is normal. No pulmonary edema or pulmonary congestion Mediastinum, audrey:No mediastinal widening. No hilar mass Pleura:No detectable left pneumothorax. There is mild left subcutaneous emphysema Skeletal:Negative. Left rib fractures are again identified, unchanged IMPRESSION: 1. No left pneumothorax identified 2. Mild bibasilar parenchymal density consistent with atelectasis Interpreted and Authenticated by: Zach Perdomo 01/08/20
[2020-01-08] MEDS: CARBIDOPA/LEVODOPA 25/100 TABLET PO SCH ×2 (07:59→11:45)
[2020-01-08] MEDS: CARBIDOPA/LEVODOPA CR 25/100 TABLET PO SCH ×3 (07:59→17:47)
[2020-01-08] MEDS: PANTOPRAZOLE 40 MG TABLET PO SCH (07:59)
[2020-01-08] MEDS: CIPROFLOXACIN 250 MG TABLET PO SCH ×2 (10:24→20:30)
[2020-01-08] MEDS: DOCUSATE SODIUM 100 MG CAPSULE PO SCH ×2 (10:24→20:30)
[2020-01-08] MEDS: ASPIRIN 81 MG TAB.CHEW PO SCH (10:24)
[2020-01-08] MEDS: EZETIMIBE 10 MG TABLET PO SCH (10:24)
[2020-01-08] MEDS: TAMSULOSIN 0.4 MG CAPSULE PO SCH ×2 (10:25→20:30)
[2020-01-08] MEDS: DOMPERIDONE 10 MG PO SCH ×2 (10:25→20:29)
[2020-01-08] MEDS: CLOPIDOGREL 75 MG TABLET PO SCH (10:25)
[2020-01-08] MEDS: POLYETHYLENE GLYCOL 3350 17 GM PACKET PO SCH ×2 (10:25→20:29)
--- NOTE | 2020-01-08 14:30 | General Surgery Progress Note ---
SUBJECTIVE Subjective Patient information: Note initiated : 01/08/20 at 2:26 pm Service Date, if different from initiated Date: [] Patient: Jeffry Sharif 74 y/o M admitted on 01/05/20 for rib pain. Chief Complaint: [] Principal diagnosis: left chest wall pain; left pneumothorax Interval history: patient is stable but he still has a small air leak. Chest x- ray shows full expansion of his lung. He has excellent breath sounds bilaterally. Constitutional Vitals: Vital Signs Temp Pulse Resp BP Pulse Ox 98.0 F 99 H 18 115/65 94 01/08/20 12:00 01/08/20 12:00 01/08/20 12:00 01/08/20 12:00 01/08/20 12:00 Period Temp Pulse Resp BP Sys/Lopez Pulse Ox Last 24 Hr 97.7 F-98.3 F 88-105 12-18 97-168/56-86 93-96 Intake and Output 01/08/20 01/08/20 01/08/20 05:59 13:59 21:59 Intake Total 560 340 Output Total 1077 Balance -517 340 Intake & Output: Intake & Output 01/08/20 01/08/20 01/08/20 05:59 13:59 21:59 Intake Total 560 340 Output Total 1077 Balance -517 340 Intake: IV 100 100 Oral 460 240 Output: Chest Tube Drainage 2 Left Upper Lateral Chest 2 Urine Catheter Amount 1075 Other: Meal Breakfast Percent of Meal Consumed 50% Urine Appearance Clear Urine Color Bright Yellow Head Head exam: Present atraumatic, normal inspection and normocephalic Eye Eye exam: Present EOMI and normal appearance Pupils: Present normal accommodation and PERRL ENT ENT exam: Present normal exam and normal oropharynx Neck Neck exam: Present full ROM; Absent lymphadenopathy, tenderness and thyromegaly Respiratory Respiratory exam: Present CTAB; Absent rales, rhonchi and wheezes Cardiovascular Cardiovascular exam: Present RRR, +S1 and +S2; Absent gallop and JVD GI/Abdominal GI/Abdominal exam: Present normal bowel sounds and soft; Absent distended and tenderness Extremities Exam Extremities exam: Present full ROM and neurovascular intact; Absent pedal edema Back Exam Back exam: Absent tenderness Neurological Exam Neurological exam: Present abnormal gait, alert, CN II-XII intact and oriented X3; Absent motor sensory deficit, normal gait and reflexes normal Psychiatric Psychiatric exam: Present anxious, depressed and flat affect A/P Assessment and plan (1) Traumatic fracture of ribs of left side with pneumothorax: Status: Acute (2) 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, with behavioral disturbance: Status: Chronic (3) Parkinson's disease: Status: Acute Narrative A/P Narrative: increase cisterns suction to 30 cm of water Trazodone 50 mg daily at bedtime when necessary Time Spent With Patient Time: Total time spent is greater than 50% in coordination of care (as documented) at patient's floor/unit and/or counseling patient:
[2020-01-08] MEDS: TOLTERODINE 4 MG PO SCH (20:29)
[2020-01-08] MEDS: SIMVASTATIN 40 MG TABLET PO SCH (20:30)
[2020-01-08] MEDS: SENNOSIDES 1 TABLET PO SCH (20:30)
[2020-01-08] MEDS: LORazepam 1 MG TABLET PO PRN (20:30)
[2020-01-08] MEDS: traZODone HCL 50 MG TABLET PO PRN (20:30)
[2020-01-09] MEDS: ACETAMINOPHEN 1,000 MG/100 ML BOTTLE IV PRN (05:04)
[2020-01-09] MEDS: 0.9 % SODIUM CHLORIDE 10 ML SYRINGE IV SCH ×3 (05:05→20:48)
--- NOTE | 2020-01-09 06:54 | XRay Report ---
INDICATION: follow-up of left pneumothorax TECHNIQUE: AP portable semiupright chest x-ray COMPARISON: Previous examinations dated 01/08/2020, 01/07/2020, 01/06/2020 FINDINGS:No change in position of left sided chest tube directed towards the apex. Lungs:Mild bibasilar pulmonary parenchymal density most consistent with atelectasis. Heart, vascular:No significant cardiomegaly. Pulmonary vascularity is normal. No pulmonary edema or pulmonary congestion Mediastinum, audrey:No mediastinal widening. No hilar mass Pleura:No residual or recurrent left pneumothorax identified Skeletal:Left-sided rib fractures are present, unchanged IMPRESSION: 1. No change in left chest tube position 2. No residual or recurrent left pneumothorax Interpreted and Authenticated by: Zach Perdomo 01/09/20
[2020-01-09] MEDS: DOCUSATE SODIUM 100 MG CAPSULE PO SCH ×2 (08:56→20:50)
[2020-01-09] MEDS: CLOPIDOGREL 75 MG TABLET PO SCH (08:57)
[2020-01-09] MEDS: CARBIDOPA/LEVODOPA 25/100 TABLET PO SCH ×2 (08:57→12:13)
[2020-01-09] MEDS: PANTOPRAZOLE 40 MG TABLET PO SCH (08:57)
[2020-01-09] MEDS: TAMSULOSIN 0.4 MG CAPSULE PO SCH ×2 (08:57→20:50)
[2020-01-09] MEDS: CIPROFLOXACIN 250 MG TABLET PO SCH ×2 (08:57→20:50)
[2020-01-09] MEDS: CARBIDOPA/LEVODOPA CR 25/100 TABLET PO SCH ×3 (08:58→18:07)
[2020-01-09] MEDS: ASPIRIN 81 MG TAB.CHEW PO SCH (08:58)
[2020-01-09] MEDS: DOMPERIDONE 10 MG PO SCH ×2 (08:59→20:49)
[2020-01-09] MEDS: POLYETHYLENE GLYCOL 3350 17 GM PACKET PO SCH ×2 (08:59→20:48)
--- NOTE | 2020-01-09 17:26 | General Surgery Progress Note ---
SUBJECTIVE Subjective Patient information: Note initiated : 01/09/20 at 5:20 pm Service Date, if different from initiated Date: [] Patient: Jeffry Sharif 74 y/o M admitted on 01/05/20 for rib pain. Chief Complaint: [] Principal diagnosis: left chest wall pain; left pneumothorax Interval history: patient is clinically stable. He did not have any change in his small air leak with increased pressure so it was reduced back to 20 cm water. Chest x-ray shows full expansion without pneumothorax. His is still concerned about his insomnia. We discussed trying Benadryl 50 mg IV daily at bedtime tonight. Constitutional Vitals: Vital Signs Temp Pulse Resp BP Pulse Ox 98.5 F 87 20 127/64 96 01/09/20 12:56 01/09/20 12:56 01/09/20 12:56 01/09/20 12:56 01/09/20 12:56 Period Temp Pulse Resp BP Sys/Lopez Pulse Ox Last 24 Hr 97.4 F-100.2 F 74-105 16-20 119-164/64-79 93-97 Intake and Output 01/09/20 01/09/20 01/09/20 05:59 13:59 21:59 Intake Total 300 240 Output Total 702 100 Balance -402 140 Intake & Output: Intake & Output 01/09/20 01/09/20 01/09/20 05:59 13:59 21:59 Intake Total 300 240 Output Total 702 100 Balance -402 140 Intake: IV 100 Oral 200 240 Output: Drainage 2 Left Chest 2 Urine Catheter Amount 700 Void Amount 100 Other: Urine Appearance Clear Straight Clear Urine Color Dark Yellow Straight Bright Yellow Urine Odor Normal Head Head exam: Present atraumatic, normal inspection and normocephalic Eye Eye exam: Present EOMI and normal appearance Pupils: Present normal accommodation and PERRL ENT ENT exam: Present normal exam and normal oropharynx Neck Neck exam: Present full ROM; Absent lymphadenopathy, tenderness and thyromegaly Respiratory Respiratory exam: Present CTAB; Absent rales, rhonchi and wheezes Cardiovascular Cardiovascular exam: Present RRR, +S1 and +S2; Absent gallop and JVD Extremities Exam Extremities exam: Present full ROM and neurovascular intact; Absent pedal edema Neurological Exam Neurological exam: Present abnormal gait, alert, CN II-XII intact and oriented X3; Absent motor sensory deficit, normal gait and reflexes normal Psychiatric Psychiatric exam: Present anxious, depressed and flat affect A/P Assessment and plan (1) Closed traumatic fracture of ribs of left side with pneumothorax: Status: Acute (2) 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, with behavioral disturbance: Status: Chronic (3) Insomnia: Status: Acute Qualifiers: Insomnia type: due to other mental disorder Qualified Code(s): F51.05 - Insomnia due to other mental disorder; F99 - Mental disorder, not otherwise specified Narrative A/P Narrative: Benadryl 50 mg daily at bedtime when necessary wine 8 ounces with evening meal Reduce suction to 20 cm water Time Spent With Patient Time: Total time spent is greater than 50% in coordination of care (as documented) at patient's floor/unit and/or counseling patient:
[2020-01-09] MEDS: diphenhydrAMINE 50 MG/ML VIAL IV SCH (20:48)
[2020-01-09] MEDS: TOLTERODINE 4 MG PO SCH (20:49)
[2020-01-09] MEDS: SENNOSIDES 1 TABLET PO SCH (20:51)
--- NOTE | 2020-01-10 06:44 | XRay Report ---
INDICATION: follow-up of left pneumothorax TECHNIQUE: AP portable semiupright chest x-ray COMPARISON: None FINDINGS:No change and left-sided chest tube position Lungs:Mild density in the left lower lobe consistent with volume loss. Lungs are otherwise negative Heart, vascular:No significant cardiomegaly. Pulmonary vascularity is normal. No pulmonary edema or pulmonary congestion Mediastinum, audrey:No mediastinal widening. No hilar mass Pleura:No detectable left pneumothorax. Skeletal:Left-sided rib fractures are not well visualized on present examination. There is minimal soft tissue gas IMPRESSION: 1. No left pneumothorax 2. Mild left basilar infiltrate Interpreted and Authenticated by: Zach Perdomo 01/10/20
[2020-01-10] MEDS: 0.9 % SODIUM CHLORIDE 10 ML SYRINGE IV SCH ×3 (07:07→21:29)
[2020-01-10] MEDS: PANTOPRAZOLE 40 MG TABLET PO SCH (07:38)
[2020-01-10] MEDS: CARBIDOPA/LEVODOPA 25/100 TABLET PO SCH ×2 (07:38→12:54)
[2020-01-10] MEDS: CARBIDOPA/LEVODOPA CR 25/100 TABLET PO SCH ×3 (07:39→16:45)
[2020-01-10] MEDS: EZETIMIBE 10 MG TABLET PO SCH (09:01)
[2020-01-10] MEDS: TAMSULOSIN 0.4 MG CAPSULE PO SCH ×2 (09:02→21:32)
[2020-01-10] MEDS: CIPROFLOXACIN 250 MG TABLET PO SCH ×2 (09:02→21:32)
[2020-01-10] MEDS: DOCUSATE SODIUM 100 MG CAPSULE PO SCH ×2 (09:02→21:33)
[2020-01-10] MEDS: ASPIRIN 81 MG TAB.CHEW PO SCH (09:02)
[2020-01-10] MEDS: CLOPIDOGREL 75 MG TABLET PO SCH (09:02)
[2020-01-10] MEDS: DOMPERIDONE 10 MG PO SCH ×2 (09:03→21:30)
[2020-01-10] MEDS: POLYETHYLENE GLYCOL 3350 17 GM PACKET PO SCH ×2 (09:03→21:32)
[2020-01-10] MEDS: ACETAMINOPHEN 1,000 MG/100 ML BOTTLE IV PRN ×2 (10:53→17:54)
--- NOTE | 2020-01-10 15:41 | General Surgery Progress Note ---
SUBJECTIVE Subjective Patient information: Note initiated : 01/10/20 at 3:37 pm Service Date, if different from initiated Date: [] Patient: Jeffry Sharif 74 y/o M admitted on 01/05/20 for rib pain. Chief Complaint: [] Principal diagnosis: left chest wall pain; left pneumothorax Interval history: patient continues to improve. He has no respiratory difficulty and his chest pain is significantly improved. He was able to sleep for 6 consecutive hours last evening and he looks and feels much better today. He still has a very small air leak. Constitutional Vitals: Vital Signs Temp Pulse Resp BP Pulse Ox 97.9 F 90 16 152/87 97 01/10/20 13:00 01/10/20 13:00 01/10/20 13:00 01/10/20 13:00 01/10/20 13:00 Period Temp Pulse Resp BP Sys/Lopez Pulse Ox Last 24 Hr 97.9 F-99.6 F 78-93 16-20 140-164/66-91 93-97 Intake and Output 01/10/20 01/10/20 01/10/20 05:59 13:59 21:59 Intake Total 0 100 Output Total 575 Balance -575 100 Weight 171 lb Patient Weight 01/11/20 05:59 Weight 171 lb Intake & Output: Intake & Output 01/10/20 01/10/20 01/10/20 05:59 13:59 21:59 Intake Total 0 100 Output Total 575 Balance -575 100 Weight 171 lb Intake: IV 100 Oral 0 Output: Chest Tube Drainage 0 Left Upper Lateral Chest 0 Urine Catheter Amount 575 Other: Meal Breakfast Percent of Meal Consumed 25% Feeding Ability Assist with Tray Set Up Urine Appearance Clear Straight Clear Urine Color Dark Yellow Straight Dark Yellow Head Head exam: Present atraumatic, normal inspection and normocephalic Eye Eye exam: Present EOMI and normal appearance Pupils: Present normal accommodation and PERRL ENT ENT exam: Present normal exam and normal oropharynx Neck Neck exam: Present full ROM; Absent lymphadenopathy, tenderness and thyromegaly Respiratory Respiratory exam: Present CTAB; Absent rales, rhonchi and wheezes Cardiovascular Cardiovascular exam: Present RRR, +S1 and +S2; Absent gallop and JVD GI/Abdominal GI/Abdominal exam: Present normal bowel sounds and soft; Absent distended and tenderness Extremities Exam Extremities exam: Present full ROM and neurovascular intact; Absent pedal edema Neurological Exam Neurological exam: Present abnormal gait, alert, CN II-XII intact and oriented X3; Absent motor sensory deficit, normal gait and reflexes normal Psychiatric Psychiatric exam: Present anxious, depressed and flat affect Expanded Psychiatric Exam Focused psych exam: Present euphoric Skin Skin exam: Absent erythema and rash A/P Assessment and plan (1) Closed traumatic fracture of ribs of left side with pneumothorax: Status: Acute (2) 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, with behavioral disturbance: Status: Chronic (3) Insomnia: Status: Acute Qualifiers: Insomnia type: due to other mental disorder Qualified Code(s): F51.05 - Insomnia due to other mental disorder; F99 - Mental disorder, not otherwise specified Narrative A/P Narrative: patient is continuing to improve. He is mentally much more alert and aware. We'll continue on suction at 20 cm water. Time Spent With Patient Time: Total time spent is greater than 50% in coordination of care (as documented) at patient's floor/unit and/or counseling patient:
[2020-01-10] MEDS: diphenhydrAMINE 50 MG/ML VIAL IV SCH (21:30)
[2020-01-10] MEDS: TOLTERODINE 4 MG PO SCH (21:31)
[2020-01-10] MEDS: SIMVASTATIN 40 MG TABLET PO SCH (21:32)
[2020-01-10] MEDS: SENNOSIDES 1 TABLET PO SCH (21:32)
[2020-01-10] MEDS: LORazepam 1 MG TABLET PO PRN (23:09)
[2020-01-11] MEDS: 0.9 % SODIUM CHLORIDE 10 ML SYRINGE IV SCH ×3 (07:13→21:47)
[2020-01-11] MEDS: CARBIDOPA/LEVODOPA CR 25/100 TABLET PO SCH ×3 (07:41→17:18)
[2020-01-11] MEDS: CARBIDOPA/LEVODOPA 25/100 TABLET PO SCH ×2 (07:41→12:21)
[2020-01-11] MEDS: ACETAMINOPHEN 1,000 MG/100 ML BOTTLE IV PRN ×2 (07:41→14:07)
[2020-01-11] MEDS: PANTOPRAZOLE 40 MG TABLET PO SCH (07:48)
[2020-01-11] MEDS: CIPROFLOXACIN 250 MG TABLET PO SCH ×2 (08:15→21:46)
[2020-01-11] MEDS: DOCUSATE SODIUM 100 MG CAPSULE PO SCH ×2 (08:16→21:46)
[2020-01-11] MEDS: TAMSULOSIN 0.4 MG CAPSULE PO SCH ×2 (08:16→21:46)
[2020-01-11] MEDS: CLOPIDOGREL 75 MG TABLET PO SCH (08:16)
[2020-01-11] MEDS: ASPIRIN 81 MG TAB.CHEW PO SCH (08:16)
[2020-01-11] MEDS: DOMPERIDONE 10 MG PO SCH ×2 (08:17→21:44)
[2020-01-11] MEDS: POLYETHYLENE GLYCOL 3350 17 GM PACKET PO SCH ×2 (08:18→21:46)
--- NOTE | 2020-01-11 14:18 | General Surgery Progress Note ---
SUBJECTIVE Subjective Patient information: Note initiated : 01/11/20 at 2:13 pm Service Date, if different from initiated Date: [] Patient: Jeffry Sharif 74 y/o M admitted on 01/05/20 for rib pain. Chief Complaint: [] Principal diagnosis: left chest wall pain; left pneumothorax Interval history: patient is having more chest wall pain today. He did not sleep last evening. He has minimal small leak of a few cc intermittently. He also has low-grade temperature elevation. Constitutional Vitals: Vital Signs Temp Pulse Resp BP Pulse Ox 97.9 F 106 H 18 147/78 95 01/11/20 11:56 01/11/20 11:56 01/11/20 11:56 01/11/20 11:56 01/11/20 11:56 Period Temp Pulse Resp BP Sys/Lopez Pulse Ox Last 24 Hr 97.9 F-100.0 F 76-106 16-20 135-156/64-83 94-97 Intake and Output 01/11/20 01/11/20 01/11/20 05:59 13:59 21:59 Intake Total 340 280 Output Total 902 Balance -562 280 Intake & Output: Intake & Output 01/11/20 01/11/20 01/11/20 05:59 13:59 21:59 Intake Total 340 280 Output Total 902 Balance -562 280 Intake: IV 100 Oral 340 180 Output: Chest Tube Drainage 2 Left Upper Lateral Chest 2 Urine Catheter Amount 900 Other: Meal Breakfast Percent of Meal Consumed 75% Feeding Ability Independent Urine Appearance Clear Straight Clear Urine Color Dark Yellow Straight Dark Yellow Head Head exam: Present atraumatic, normal inspection and normocephalic Eye Eye exam: Present EOMI and normal appearance Pupils: Present normal accommodation and PERRL ENT ENT exam: Present normal exam and normal oropharynx Neck Neck exam: Present full ROM; Absent lymphadenopathy, tenderness and thyromegaly Respiratory Respiratory exam: Present chest wall tenderness (tenderness left posterolateral chest wall and around chest tube) and CTAB; Absent rales, rhonchi and wheezes Cardiovascular Cardiovascular exam: Present RRR, +S1 and +S2; Absent gallop and JVD Extremities Exam Extremities exam: Present full ROM and neurovascular intact; Absent pedal edema Back Exam Back exam: Absent tenderness Neurological Exam Neurological exam: Present abnormal gait, alert, CN II-XII intact and oriented X3; Absent motor sensory deficit, normal gait and reflexes normal Psychiatric Psychiatric exam: Present anxious, depressed and flat affect Skin Skin exam: Absent erythema and rash A/P Assessment and plan (1) Closed traumatic fracture of ribs of left side with pneumothorax: Status: Acute (2) 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, with behavioral disturbance: Status: Chronic (3) Insomnia: Status: Acute Qualifiers: Insomnia type: due to other mental disorder Qualified Code(s): F51.05 - Insomnia due to other mental disorder; F99 - Mental disorder, not otherwise specified Narrative A/P Narrative: chest tube placed to waterseal only Follow-up chest x-ray in the morning If he developed small pneumothorax will use sclerosing agent per chest tube such as doxycycline to try to initiate an inflammatory response. Time Spent With Patient Time: Total time spent is greater than 50% in coordination of care (as documented) at patient's floor/unit and/or counseling patient:
[2020-01-11] MEDS: HYDROcodone/APAP 5/325MG TABLET PO PRN (15:22)
[2020-01-11] MEDS: HYDROmorphone 1 MG/ML SYRINGE IV PRN ×3 (16:16→21:46)
[2020-01-11] MEDS ORDERED: MAG HYDROX/AL HYDROX/SIMETH 30 ML ORAL.SUSP PO PRN (16:36)
[2020-01-11] MEDS: TOLTERODINE 4 MG PO SCH (21:45)
[2020-01-11] MEDS: diphenhydrAMINE 50 MG/ML VIAL IV SCH (21:45)
[2020-01-11] MEDS: SENNOSIDES 1 TABLET PO SCH (21:47)
[2020-01-12] MEDS: 0.9 % SODIUM CHLORIDE 10 ML SYRINGE IV SCH ×3 (06:02→20:53)
[2020-01-12 07:05] LABS: Basophils # (Auto) 0.06 K/mcL (0.00-0.30); Basophils % (Auto) 0.7 % (0.0-2.0); Eosinophils # (Auto) 0.63 K/mcL (0.00-0.70); Eosinophils % (Auto) 7.6 % (0.0-7.0); Granulocytes % (Auto) 61.5 % (38.0-78.0); Hematocrit 35.7 % (40.1-51.0); Hemoglobin 11.9 g/dL (13.7-17.5); Lymphocytes # (Auto) 1.48 K/mcL (1.50-4.80); Lymphocytes % (Auto) 17.9 % (15.5-49.0); Mean Cell Volume 88.6 fL (80.0-100.0); Mean Corpuscular HGB Conc 33.3 g/dL (31.0-36.0); Mean Platelet Volume 8.8 fL (7.4-10.4); Monocytes # (Auto) 1.02 K/mcL (0.10-0.90); Monocytes % (Auto) 12.3 % (1.0-12.0); Platelet Count 285 K/mcL (140-440); RBC 4.03 M/mcL (4.63-6.08); Red Cell Distribution Width 12.6 % (11.5-14.5); WBC 8.3 K/mcL (4.50-11.00)
[2020-01-12] MEDS: CARBIDOPA/LEVODOPA CR 25/100 TABLET PO SCH ×3 (07:17→16:55)
[2020-01-12] MEDS: CARBIDOPA/LEVODOPA 25/100 TABLET PO SCH ×2 (07:18→12:09)
[2020-01-12] MEDS: PANTOPRAZOLE 40 MG TABLET PO SCH (07:18)
--- NOTE | 2020-01-12 07:52 | XRay Report ---
INDICATION: f/u pneumothorax TECHNIQUE: AP portable upright chest x-ray COMPARISON: Multiple previous chest x-rays including most recent examination dated 01/10/2020 FINDINGS:No change in left apical chest tube Lungs:Mild pulmonary parenchymal density at the left lung base consistent with volume loss. Pneumonia is possible. Heart, vascular:No significant cardiomegaly. Pulmonary vascularity is normal. No pulmonary edema or pulmonary congestion Mediastinum, audrey:No mediastinal widening. No hilar mass Pleura:There may be a left basilar pneumothorax. There is a small right apical pneumothorax. These findings are new since previous examination. Skeletal:Left fourth and fifth rib fractures are again identified IMPRESSION: 1. Findings consistent with small left pneumothorax 2. Findings are new since previous examination Interpreted and Authenticated by: Zach Perdomo 01/12/20
[2020-01-12] MEDS: TAMSULOSIN 0.4 MG CAPSULE PO SCH ×2 (08:25→20:53)
[2020-01-12] MEDS: DOCUSATE SODIUM 100 MG CAPSULE PO SCH ×2 (08:25→20:54)
[2020-01-12] MEDS: CIPROFLOXACIN 250 MG TABLET PO SCH ×2 (08:25→20:52)
[2020-01-12] MEDS: ASPIRIN 81 MG TAB.CHEW PO SCH (08:25)
[2020-01-12] MEDS: EZETIMIBE 10 MG TABLET PO SCH (08:25)
[2020-01-12] MEDS: POLYETHYLENE GLYCOL 3350 17 GM PACKET PO SCH ×2 (08:26→20:53)
[2020-01-12] MEDS: DOMPERIDONE 10 MG PO SCH ×2 (08:26→20:56)
[2020-01-12] MEDS: CLOPIDOGREL 75 MG TABLET PO SCH (08:26)
[2020-01-12] MEDS: HYDROcodone/APAP 5/325MG TABLET PO PRN ×3 (09:21→20:52)
--- NOTE | 2020-01-12 13:04 | General Surgery Progress Note ---
SUBJECTIVE Subjective Patient information: Note initiated : 01/12/20 at 12:43 pm Service Date, if different from initiated Date: [] Patient: Jeffry Sharif 74 y/o M admitted on 01/05/20 for rib pain. Chief Complaint: [] Principal diagnosis: left chest wall pain; left pneumothorax Interval history: patient has left chest wall pain. He had essentially no leak yesterday however his 1 and x-ray shows 2 areas of developing leak and he was placed back to suction. He still has a small leak at this time. I will ask thoracic surgeon at one of the larger hospitals about the possibility of accepting him for chemical pleurodesis or VATS procedure with stapling. Constitutional Vitals: Vital Signs Temp Pulse Resp BP Pulse Ox 99.1 F H 98 H 18 125/71 92 01/12/20 11:24 01/12/20 11:24 01/12/20 11:24 01/12/20 11:24 01/12/20 11:24 Period Temp Pulse Resp BP Sys/Lopez Pulse Ox Last 24 Hr 97.5 F-99.3 F 82-101 16-18 121-145/71-86 92-96 Intake and Output 01/11/20 01/12/20 01/12/20 21:59 05:59 13:59 Intake Total 440 800 720 Output Total 700 Balance 440 100 720 Weight 160 lb 8 oz Intake & Output: Intake & Output 01/11/20 01/12/20 01/12/20 21:59 05:59 13:59 Intake Total 440 800 720 Output Total 700 Balance 440 100 720 Weight 160 lb 8 oz Intake: IV 100 Oral 340 720 GI Tube Flush 800 Output: Urine Catheter Amount 700 Other: Meal Lunch Dinner Lunch Percent of Meal Consumed 25% 0% 50% Feeding Ability Independent Independent Stool Size Large Moderate Stool Color Brown Brown Stool Consistency Formed Soft # Bowel Movements 1 1 Head Head exam: Present atraumatic, normal inspection and normocephalic Eye Eye exam: Present EOMI and normal appearance Pupils: Present normal accommodation and PERRL ENT ENT exam: Present normal exam and normal oropharynx Neck Neck exam: Present full ROM; Absent lymphadenopathy, tenderness and thyromegaly Respiratory Respiratory exam: Present chest wall tenderness (tenderness left posterolateral chest wall and around chest tube) and CTAB; Absent rales, rhonchi and wheezes Cardiovascular Cardiovascular exam: Present RRR, +S1 and +S2; Absent gallop and JVD GI/Abdominal GI/Abdominal exam: Present normal bowel sounds and soft; Absent distended and tenderness Extremities Exam Extremities exam: Present full ROM and neurovascular intact; Absent pedal edema Neurological Exam Neurological exam: Present abnormal gait, alert, CN II-XII intact and oriented X3; Absent motor sensory deficit, normal gait and reflexes normal A/P Assessment and plan (1) Closed traumatic fracture of ribs of left side with pneumothorax: Status: Acute (2) 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, with behavioral disturbance: Status: Chronic Narrative A/P Narrative: the patient is back to suction. Since he has small bowel persistent leak after 7 days of suction I will ask for second opinion of thoracic surgeon about possibility of chemical pleurodesis or VATS with stapling versus continued prolonged suction. Time Spent With Patient Time: Total time spent is greater than 50% in coordination of care (as documented) at patient's floor/unit and/or counseling patient:
--- NOTE | 2020-01-12 13:05 | Discharge Summary ---
Discharge Provider Provider Patient information: Note initiated : 01/12/20 at 1:04 pm Service Date, if different from initiated Date: [] Patient: Jeffry Sharif 74 y/o M admitted on 01/05/20 for rib pain. Chief Complaint: [] Date of admission: 01/05/20 17:55 Discharge date: 01/14/20 Primary care physician: Susy Ayon Admitting clinician: Cecily Otero Attending physician on admission: Cecily Otero Consults: 01/05/20 Consult to Physician [CONS] Stat Comment: Consulting Provider: Cecily Otero Reason For Exam: Physician to Consult Attending physician on discharge: Cecily Otero Discharging clinician: Cecily Otero COURSE Hospital Course Hospital course: 74-year-old male who was admitted on 04 January with complete pneumothorax. The patient has a 5 day history of chest pain after sustaining a fall at home. He had continued severe chest pain and increasing shortness of breath. He was finally seen in the emergency room where he was noted to have a complete pneumothorax but no features of tension. A closed tube thoracostomy was done with immediate reexpansion of his lung. He has been on 20 cm of suction and water seal since that time. When seen on yesterday he did not have a leak in his chest x-ray showed full expansion so he was placed on waterseal only. Chest x-ray performed earlier this morning showed 2 areas of developing pneumothorax at the base and at the apex. He has been placed back on suction and now has a small leak. He is probably a candidate for chemical pleurodesis but I would like for this to be performed in our facility that can perform VATS with stapling if this is not successful. Arrangements will be made for him to be transferred to a facility that has thoracic surgery. Discharge diagnosis: traumatic pneumothorax with persistent pleural leak Secondary discharge diagnosis: advanced Parkinson's disease with cognitive deterioration History of coronary artery disease stable History of prostate cancer stable Bladder outlet obstruction with chronic UTI and chronic urinary retention Time Spent with Patient Time attestation: Total time spent providing and/or coordinating discharge services: Physical Examination Vital Signs Vital signs: Temp Pulse Resp BP Pulse Ox 99.1 F H 98 H 18 125/71 92 01/12/20 11:24 01/12/20 11:24 01/12/20 11:24 01/12/20 11:24 01/12/20 11:24 General physical appearance General physical exam: moderate distress and moderate pain Eyes Eye exam: PERRL and normal ocular movement ENT ENT exam: normal mucosa and decreased hearing Head Head exam IM: Present atraumatic, normal inspection and normocephalic Neck Neck exam: no masses, no bruits, trachea midline, no lymphadenopathy and no venous distension Cardiovascular Cardiovascular exam IM: Present normal rate and rhythm, RRR, +S1 and +S2; Absent JVD Respiratory Respiratory exam: normal expansion, normal respiratory effort, clear to percussion and clear to auscultation Abdomen Abdomen: Present soft and non tender Integumentary Integumentary: Present other (superficial abrasion right lower extremity anteriorly) Neurologic Neurologic: Present other (cog-wheel rigidity of extremities;) Musculoskeletal Musculoskeletal: Present other (severely limited gait due to Parkinson's disease) Psychiatric Psychiatric: Present oriented to time, oriented to person, oriented to place and memory intact; Absent speech is normal Discharge Plan Patient/Caregiver Discharge Instructions Activity: increase activity as tolerated and resume usual activities as tolerated Diet: Regular Diet Prescriptions: No Action clopidogrel 75 MG tablet 75 mg PO DAILY RF: 0 simvastatin 80 MG tablet 80 mg PO Q48@2100 RF: 0 aspirin 81 MG tablet,delayed release (DR/EC) 81 mg PO DAILY RF: 0 nitroglycerin 0.4 MG tablet, sublingual 0.4 mg SL PRN PRN (Reason: Chest Pain) RF: 0 lorazepam 1 MG tablet 1 mg PO DAILYP PRN (Reason: Anxiety) RF: 0 ezetimibe 10 MG tablet 10 mg PO Q48 RF: 0 carbidopa-levodopa 1 TAB tablet extended release 1.5 tab PO TID@0800,1200,1700 RF: 0 carbidopa-levodopa 1 TAB tablet 1 tab PO TID@0800,1200,1700 RF: 0 Domperidone 1 tab PO BID RF: 0 docusate sodium 100 MG capsule 100 mg PO BID Qty: 60 RF: 0 ondansetron HCl 4 mg Tablet 4 mg PO BID RF: 0 ciprofloxacin HCl 250 mg tablet 250 mg PO BID RF: 0 tolterodine 2 mg capsule,extended release 24hr 2 mg PO HS RF: 0 Follow Up Plan Follow up with: Susy Ayon MD [Primary Care Provider] - Patient Disposition: [facility] Assessment: patient is clinically stable except for persistent small pleural leak Plan of Treatment: transferred to acute care facility for chemical pleurodesis or possible VATS procedure with stapling Prognosis: Fair Rehab Potential: Fair I certify that the patient requires SNF services: No Overall status at discharge: patient is not back to baseline Discharge Orders: Discharge Order (Routine); Ordered 01/14/20 Ordered By: Cecily Otero Pending Pending Pending: Resuscitation Status Full Code Diet Regular Diet Start MonJan 09 1543 Hydrocodone Bitart/Acetaminophen ([place] 5/325mg) 1 tab PO Q4HP PRN; Protocol PRN Reason: Per Pain Protocol Last Admin: 01/12/20 13:00 Dose: 1 tab Documented by: Admin: 01/12/20 09:21 Dose: 1 tab Documented by: Admin: 01/11/20 15:22 Dose: 1 tab Documented by: EUGENIA Aspirin (Aspirin) 81 mg PO DAILY [facility] Last Admin: 01/12/20 08:25 Dose: 81 mg Documented by: Admin: 01/11/20 08:16 Dose: 81 mg Documented by: Admin: 01/10/20 09:02 Dose: 81 mg Documented by: Admin: 01/09/20 08:58 Dose: 81 mg Documented by: Admin: 01/08/20 10:24 Dose: 81 mg Documented by: Admin: 01/07/20 09:46 Dose: 81 mg Documented by: Admin: 01/06/20 08:05 Dose: 81 mg Documented by: ISA Bisacodyl (Dulcolax) 10 mg IN DAILYP PRN PRN Reason: Constipation Last Admin: 01/07/20 12:02 Dose: 10 mg Documented by: ISA Carbidopa/Levodopa (Sinemet Cr 25/100) 1.5 tab PO TID@0800,1200,1700 [facility] Last Admin: 01/12/20 12:08 Dose: 1.5 tab Documented by: Admin: 01/12/20 07:17 Dose: 1.5 tab Documented by: Admin: 01/11/20 17:18 Dose: Not Given Documented by: Admin: 01/11/20 12:21 Dose: 1.5 tab Documented by: Admin: 01/11/20 07:41 Dose: 1.5 tab Documented by: Admin: 01/10/20 16:45 Dose: 1.5 tab Documented by: Admin: 01/10/20 12:54 Dose: 1.5 tab Documented by: Admin: 01/10/20 07:39 Dose: 1.5 tab Documented by: Admin: 01/09/20 18:07 Dose: 1.5 tab Documented by: Admin: 01/09/20 12:14 Dose: 1.5 tab Documented by: Admin: 01/09/20 08:58 Dose: 1.5 tab Documented by: Admin: 01/08/20 17:47 Dose: 1.5 tab Documented by: Admin: 01/08/20 11:46 Dose: 1.5 tab [facility] Admin: 01/08/20 07:59 Dose: 1.5 tab Documented by: [facility] Admin: 01/07/20 16:09 Dose: 1.5 tab Documented by: [facility] Admin: 01/07/20 12:02 Dose: 1.5 tab Documented by: [facility] Admin: 01/07/20 07:21 Dose: 1.5 tab Documented by: [facility] Admin: 01/06/20 17:35 Dose: 1.5 tab Documented by: [facility] Admin: 01/06/20 11:52 Dose: 1.5 tab Documented by: [facility] Admin: 01/06/20 08:05 Dose: 1.5 tab Documented by: [facility] Admin: 01/05/20 18:30 Dose: Not Given Documented by: MAGDA Carbidopa/Levodopa (Sinemet 25/100) 0.5 tab PO BID@0700,1200 [facility] Last Admin: 01/12/20 12:09 Dose: 0.5 tab Documented by: Admin: 01/12/20 07:18 Dose: 0.5 tab Documented by: Admin: 01/11/20 12:21 Dose: 0.5 tab Documented by: Admin: 01/11/20 07:41 Dose: 0.5 tab Documented by: Admin: 01/10/20 12:54 Dose: 0.5 tab Documented by: Admin: 01/10/20 07:38 Dose: 0.5 tab Documented by: Admin: 01/09/20 12:13 Dose: 0.5 tab Documented by: Admin: 01/09/20 08:57 Dose: 0.5 tab Documented by: Admin: 01/08/20 11:45 Dose: 0.5 tab Documented by: Admin: 01/08/20 07:59 Dose: 0.5 tab Documented by: Admin: 01/07/20 12:03 Dose: 0.5 tab Documented by: Admin: 01/07/20 07:21 Dose: 0.5 tab Documented by: Admin: 01/06/20 11:52 Dose: 0.5 tab Documented by: Admin: 01/06/20 07:38 Dose: 0.5 tab Documented by: ISA Ciprofloxacin (Cipro) 250 mg PO BID [facility]; Protocol Last Admin: 01/12/20 08:25 Dose: 250 mg Documented by: Admin: 01/11/20 21:46 Dose: 250 mg Documented by: Admin: 01/11/20 08:15 Dose: 250 mg Documented by: Admin: 01/10/20 21:32 Dose: 250 mg Documented by: Admin: 01/10/20 09:02 Dose: 250 mg Documented by: Admin: 01/09/20 20:50 Dose: 250 mg Documented by: Admin: 01/09/20 08:57 Dose: 250 mg Documented by: Admin: 01/08/20 20:30 Dose: 250 mg Documented by: Admin: 01/08/20 10:24 Dose: 250 mg Documented by: Admin: 01/07/20 20:07 Dose: 250 mg Documented by: Admin: 01/07/20 09:46 Dose: 250 mg Documented by: Admin: 01/06/20 20:37 Dose: 250 mg Documented by: Admin: 01/06/20 08:05 Dose: 250 mg Documented by: Admin: 01/05/20 21:01 Dose: 250 mg Documented by: MAGDA Clopidogrel Bisulfate (Plavix) 75 mg PO DAILY [facility] Last Admin: 01/12/20 08:26 Dose: 75 mg Documented by: Admin: 01/11/20 08:16 Dose: 75 mg Documented by: Admin: 01/10/20 09:02 Dose: 75 mg Documented by: Admin: 01/09/20 08:57 Dose: 75 mg Documented by: Admin: 01/08/20 10:25 Dose: 75 mg Documented by: Admin: 01/07/20 09:47 Dose: 75 mg Documented by: Admin: 01/06/20 08:05 Dose: 75 mg Documented by: ISA Diphenhydramine HCl (Benadryl) 50 mg IV QHS [facility] Last Admin: 01/11/20 21:45 Dose: 50 mg Documented by: Admin: 01/10/20 21:30 Dose: 50 mg Documented by: Admin: 01/09/20 20:48 Dose: 50 mg Documented by: NEHA Docusate Sodium (Colace) 100 mg PO BID [facility] Last Admin: 01/12/20 08:25 Dose: 100 mg Documented by: Admin: 01/11/20 21:46 Dose: Not Given Documented by: Admin: 01/11/20 08:16 Dose: 100 mg Documented by: Admin: 01/10/20 21:33 Dose: 100 mg Documented by: Admin: 01/10/20 09:02 Dose: 100 mg Documented by: Admin: 01/09/20 20:50 Dose: 100 mg Documented by: Admin: 01/09/20 08:56 Dose: 100 mg Documented by: Admin: 01/08/20 20:30 Dose: 100 mg Documented by: Admin: 01/08/20 10:24 Dose: 100 mg Documented by: Admin: 01/07/20 20:06 Dose: 100 mg Documented by: Admin: 01/07/20 09:47 Dose: 100 mg Documented by: Admin: 01/06/20 20:36 Dose: 100 mg Documented by: Admin: 01/06/20 08:05 Dose: 100 mg Documented by: Admin: 01/05/20 21:01 Dose: 100 mg Documented by: MAGDA Ezetimibe (Zetia) 10 mg PO Q48 [facility] Last Admin: 01/12/20 08:25 Dose: 10 mg Documented by: Admin: 01/10/20 09:01 Dose: 10 mg Documented by: Admin: 01/08/20 10:24 Dose: 10 mg Documented by: Admin: 01/06/20 10:38 Dose: 10 mg Documented by: ISA Hydromorphone HCl (Dilaudid) 1 mg IV Q2HP PRN; Protocol PRN Reason: Per Pain Protocol Last Admin: 01/11/20 21:46 Dose: 1 mg Documented by: Admin: 01/11/20 18:45 Dose: 1 mg Documented by: Admin: 01/11/20 16:16 Dose: 1 mg Documented by: Admin: 01/05/20 22:05 Dose: 1 mg Documented by: Admin: 01/05/20 18:09 Dose: 1 mg Documented by: MARTÍN Acetaminophen ([facility]) 1,000 mg in 100 mls @ 200 mls/hr IV Q6HP PRN; Protocol PRN Reason: Pain Last Infusion: 01/11/20 14:34 Dose: 0 mls/hr Documented by: Admin: 01/11/20 14:07 Dose: 200 mls/hr Documented by: Infusion: 01/11/20 08:14 Dose: 0 mls/hr Documented by: Admin: 01/11/20 07:41 Dose: 200 mls/hr Documented by: Infusion: 01/10/20 18:24 Dose: 0 mls/hr Documented by: Admin: 01/10/20 17:54 Dose: 200 mls/hr Documented by: Infusion: 01/10/20 11:23 Dose: 0 mls/hr Documented by: Admin: 01/10/20 10:53 Dose: 200 mls/hr Documented by: ABHISHEKORGAN Infusion: 01/09/20 05:40 Dose: 0 mls/hr Documented by: Admin: 01/09/20 05:04 Dose: 200 mls/hr Documented by: Infusion: 01/08/20 13:16 Dose: 0 mls/hr Documented by: Admin: 01/08/20 12:46 Dose: 200 mls/hr Documented by: Infusion: 01/08/20 01:25 Dose: 0 mls/hr Documented by: Admin: 01/08/20 00:51 Dose: 200 mls/hr Documented by: Infusion: 01/07/20 14:20 Dose: 0 mls/hr Documented by: Admin: 01/07/20 13:50 Dose: 200 mls/hr Documented by: Infusion: 01/06/20 23:50 Dose: 0 mls/hr Documented by: Admin: 01/06/20 23:16 Dose: 200 mls/hr Documented by: Infusion: 01/06/20 12:55 Dose: 0 mls/hr Documented by: Admin: 01/06/20 12:14 Dose: 200 mls/hr Documented by: Infusion: 01/06/20 03:30 Dose: 200 mls/hr Documented by: Admin: 01/06/20 03:00 Dose: 200 mls/hr Documented by: MAGDA Lorazepam (Ativan) 1 mg PO DAILYP PRN PRN Reason: Anxiety Last Admin: 01/10/20 23:09 Dose: 1 mg Documented by: Admin: 01/08/20 20:30 Dose: 1 mg Documented by: Admin: 01/07/20 20:07 Dose: 1 mg Documented by: DAYA Ondansetron HCl (Zofran) 4 mg IV Q6HP PRN PRN Reason: Nausea And Vomiting Last Admin: 01/07/20 13:54 Dose: 4 mg Documented by: ISA Pantoprazole Sodium (Protonix) 40 mg PO QAMAC [facility] Last Admin: 01/12/20 07:18 Dose: 40 mg Documented by: Admin: 01/11/20 07:48 Dose: 40 mg Documented by: Admin: 01/10/20 07:38 Dose: 40 mg Documented by: Admin: 01/09/20 08:57 Dose: 40 mg Documented by: Admin: 01/08/20 07:59 Dose: 40 mg Documented by: Admin: 01/07/20 07:21 Dose: 40 mg Documented by: Admin: 01/06/20 07:38 Dose: 40 mg Documented by: ISA Domperidone 10 Mg (Tablet) 1 dose PO BID [facility] Admin: 01/12/20 08:26 Dose: 1 dose Documented by: Admin: 01/11/20 21:44 Dose: 1 dose Documented by: Admin: 01/11/20 08:17 Dose: 1 dose Documented by: Admin: 01/10/20 21:30 Dose: 1 dose Documented by: Admin: 01/10/20 09:03 Dose: 1 dose Documented by: Admin: 01/09/20 20:49 Dose: 1 dose Documented by: Admin: 01/09/20 08:59 Dose: 1 dose Documented by: Admin: 01/08/20 20:29 Dose: 1 dose Documented by: Admin: 01/08/20 10:25 Dose: 1 dose Documented by: Admin: 01/07/20 20:05 Dose: 1 dose Documented by: Admin: 01/07/20 09:47 Dose: 1 dose Documented by: Admin: 01/06/20 20:35 Dose: 1 dose Documented by: Admin: 01/06/20 11:51 Dose: 1 dose Documented by: Admin: 01/05/20 21:01 Dose: Not Given Documented by: MAGDA Tolterodine 4 Mg Cap (.Xl.24h) 1 dose PO HS [facility] Admin: 01/11/20 21:45 Dose: Not Given Documented by: Admin: 01/10/20 21:31 Dose: Not Given Documented by: Admin: 01/09/20 20:49 Dose: 1 dose Documented by: Admin: 01/08/20 20:29 Dose: 1 dose Documented by: Admin: 01/07/20 20:05 Dose: 1 dose Documented by: Admin: 01/06/20 20:36 Dose: 1 dose Documented by: DAYA Polyethylene Glycol (Miralax) 17 gm PO BID [facility] Admin: 01/12/20 08:26 Dose: 17 gm Documented by: Admin: 01/11/20 21:46 Dose: Not Given Documented by: Admin: 01/11/20 08:18 Dose: 17 gm Documented by: Admin: 01/10/20 21:32 Dose: 17 gm Documented by: Admin: 01/10/20 09:03 Dose: 17 gm Documented by: Admin: 01/09/20 20:48 Dose: 17 gm Documented by: Admin: 01/09/20 08:59 Dose: 17 gm Documented by: Admin: 01/08/20 20:29 Dose: 17 gm Documented by: Admin: 01/08/20 10:25 Dose: 17 gm Documented by: Admin: 01/07/20 20:06 Dose: 17 gm Documented by: DAYA Elias (Senokot) 2 tab PO HS [facility] Admin: 01/11/20 21:47 Dose: Not Given Documented by: Admin: 01/10/20 21:32 Dose: 2 tab Documented by: Admin: 01/09/20 20:51 Dose: 2 tab Documented by: Admin: 01/08/20 20:30 Dose: 2 tab Documented by: Admin: 01/07/20 20:07 Dose: 2 tab Documented by: Admin: 01/06/20 20:36 Dose: 2 tab Documented by: Admin: 01/05/20 21:01 Dose: 2 tab Documented by: MAGDA Simvastatin (Zocor) 80 mg PO Q48@2100 [facility] Last Admin: 01/10/20 21:32 Dose: 80 mg Documented by: Admin: 01/08/20 20:30 Dose: 80 mg Documented by: Admin: 01/06/20 20:36 Dose: 80 mg Documented by: DAYA Sodium Chloride (Saline Flush) 10 ml IV Q8 [facility] Last Admin: 01/12/20 13:00 Dose: 10 ml Documented by: Admin: 01/12/20 06:02 Dose: 10 ml Documented by: Admin: 01/11/20 21:47 Dose: 10 ml Documented by: Admin: 01/11/20 12:33 Dose: Not Given Documented by: Admin: 01/11/20 07:13 Dose: Not Given Documented by: Admin: 01/10/20 21:29 Dose: 10 ml Documented by: Admin: 01/10/20 13:19 Dose: 10 ml Documented by: Admin: 01/10/20 07:07 Dose: Not Given Documented by: Admin: 01/09/20 20:48 Dose: 10 ml Documented by: Admin: 01/09/20 14:48 Dose: 10 ml Documented by: Admin: 01/09/20 05:05 Dose: 10 ml Documented by: Admin: 01/08/20 20:32 Dose: 10 ml Documented by: Admin: 01/08/20 12:46 Dose: 10 ml Documented by: Admin: 01/08/20 04:42 Dose: 10 ml Documented by: Admin: 01/07/20 20:08 Dose: 10 ml Documented by: Admin: 01/07/20 13:51 Dose: 10 ml Documented by: Admin: 01/07/20 05:01 Dose: 10 ml Documented by: Admin: 01/06/20 20:37 Dose: 10 ml Documented by: Admin: 01/06/20 17:35 Dose: Not Given Documented by: Admin: 01/06/20 04:29 Dose: 10 ml Documented by: Admin: 01/05/20 22:05 Dose: 10 ml Documented by: MAGDA Tamsulosin HCl (Flomax) 0.4 mg PO BID [facility] Admin: 01/12/20 08:25 Dose: 0.4 mg Documented by: Admin: 01/11/20 21:46 Dose: 0.4 mg Documented by: Admin: 01/11/20 08:16 Dose: 0.4 mg Documented by: Admin: 01/10/20 21:32 Dose: 0.4 mg Documented by: Admin: 01/10/20 09:02 Dose: 0.4 mg Documented by: Admin: 01/09/20 20:50 Dose: 0.4 mg Documented by: Admin: 01/09/20 08:57 Dose: 0.4 mg Documented by: Admin: 01/08/20 20:30 Dose: 0.4 mg Documented by: Admin: 01/08/20 10:25 Dose: 0.4 mg Documented by: Admin: 01/07/20 20:06 Dose: 0.4 mg Documented by: Admin: 01/07/20 09:46 Dose: 0.4 mg Documented by: Admin: 01/06/20 20:36 Dose: 0.4 mg Documented by: DAYA Trazodone HCl (Desyrel) 50 mg PO HSP PRN PRN Reason: Insomnia Last Admin: 01/08/20 20:30 Dose: 50 mg Documented by: DAYA Shift Summary 01/12/20 03:17 Shift Summary by Bal Condon Uneventful night. Pt slept well. Still has some intermittent confusion. VSS on RA. Pain has been better controlled. Dilaudid given x2. Chest tube to L chest; minimal output and dressing has shadow drainage. Kuar in place draining adequate amount of urine. Turn Q2H. PIV to RW is SL. Is supposed to be receiving wine with dinners but diet order changed and this did not come with dinner - needs clarification. Bedside update to follow. Initialized on 01/12/20 03:17 - END OF NOTE
[2020-01-12] MEDS: SIMVASTATIN 40 MG TABLET PO SCH (20:52)
[2020-01-12] MEDS: TOLTERODINE 4 MG PO SCH (20:53)
[2020-01-12] MEDS: LORazepam 1 MG TABLET PO PRN (20:53)
[2020-01-12] MEDS: SENNOSIDES 1 TABLET PO SCH (20:53)
[2020-01-12] MEDS: traZODone HCL 50 MG TABLET PO PRN (20:53)
[2020-01-12] MEDS: diphenhydrAMINE 50 MG/ML VIAL IV SCH (20:54)
[2020-01-13] MEDS: HYDROcodone/APAP 5/325MG TABLET PO PRN ×4 (02:32→20:15)
[2020-01-13] MEDS: 0.9 % SODIUM CHLORIDE 10 ML SYRINGE IV SCH ×3 (05:58→21:31)
[2020-01-13 06:51] LABS: Basophils # (Auto) 0.05 K/mcL (0.00-0.30); Basophils % (Auto) 0.6 % (0.0-2.0); Eosinophils # (Auto) 0.79 K/mcL (0.00-0.70); Granulocytes % (Auto) 53.3 % (38.0-78.0); Hematocrit 34.1 % (40.1-51.0); Hemoglobin 11.5 g/dL (13.7-17.5); Lymphocytes # (Auto) 2.33 K/mcL (1.50-4.80); Lymphocytes % (Auto) 26.6 % (15.5-49.0); Mean Cell Volume 89.5 fL (80.0-100.0); Mean Corpuscular HGB Conc 33.7 g/dL (31.0-36.0); Mean Platelet Volume 8.7 fL (7.4-10.4); Monocytes # (Auto) 0.92 K/mcL (0.10-0.90); Monocytes % (Auto) 10.5 % (1.0-12.0); Platelet Count 286 K/mcL (140-440); RBC 3.81 M/mcL (4.63-6.08); Red Cell Distribution Width 12.6 % (11.5-14.5); WBC 8.8 K/mcL (4.50-11.00)
[2020-01-13] MEDS: CARBIDOPA/LEVODOPA CR 25/100 TABLET PO SCH ×3 (08:29→18:04)
[2020-01-13] MEDS: CARBIDOPA/LEVODOPA 25/100 TABLET PO SCH ×2 (08:30→12:53)
[2020-01-13] MEDS: PANTOPRAZOLE 40 MG TABLET PO SCH (08:30)
--- NOTE | 2020-01-13 08:30 | XRay Report ---
CLINICAL INFORMATION: f/u pneumothorax COMPARISON: 01/12/2020 FINDINGS: Heart size, mediastinum and pulmonary vessels are normal for technique. Left chest tube maintains stable position. No evidence of recurrent left pneumothorax or effusion. There is minor atelectasis in both lung bases IMPRESSION: Minor bibasilar atelectasis. No evidence of recurrent left pneumothorax or effusion. Interpreted and Authenticated by: Zach Caceres 01/13/20
[2020-01-13] MEDS: CLOPIDOGREL 75 MG TABLET PO SCH (10:08)
[2020-01-13] MEDS: ASPIRIN 81 MG TAB.CHEW PO SCH (10:08)
[2020-01-13] MEDS: CIPROFLOXACIN 250 MG TABLET PO SCH ×2 (10:08→21:30)
[2020-01-13] MEDS: DOMPERIDONE 10 MG PO SCH ×2 (10:08→21:33)
[2020-01-13] MEDS: TAMSULOSIN 0.4 MG CAPSULE PO SCH ×2 (10:08→21:30)
[2020-01-13] MEDS: POLYETHYLENE GLYCOL 3350 17 GM PACKET PO SCH ×2 (10:09→21:31)
[2020-01-13] MEDS: DOCUSATE SODIUM 100 MG CAPSULE PO SCH ×2 (10:09→21:30)
--- NOTE | 2020-01-13 13:20 | General Surgery Progress Note ---
SUBJECTIVE Subjective Patient information: Note initiated : 01/13/20 at 1:17 pm Service Date, if different from initiated Date: [] Patient: Jeffry Sharif 74 y/o M admitted on 01/05/20 for rib pain. Chief Complaint: [] Principal diagnosis: left chest wall pain; left pneumothorax Interval history: patient is stable. He has less chest discomfort today. He still has continual air leak. Have not been able to verify arrangements for transfer to [facility]. Hopefully it will be done today. Discussed the situation with his and with the patient. Constitutional Vitals: Vital Signs Temp Pulse Resp BP Pulse Ox 98.4 F 72 16 108/61 94 01/13/20 11:46 01/13/20 11:46 01/13/20 11:46 01/13/20 11:46 01/13/20 11:46 Period Temp Pulse Resp BP Sys/Lopez Pulse Ox Last 24 Hr 97.7 F-99.8 F 72-103 16-18 107-158/57-74 94-97 Intake and Output 01/12/20 01/13/20 01/13/20 21:59 05:59 13:59 Intake Total 320 240 Output Total 1000 Balance 320 -760 Weight 162 lb Intake & Output: Intake & Output 01/12/20 01/13/20 01/13/20 21:59 05:59 13:59 Intake Total 320 240 Output Total 1000 Balance 320 -760 Weight 162 lb Intake: Oral 320 240 Output: Urine Catheter Amount 1000 Other: Meal Dinner Percent of Meal Consumed 75% Feeding Ability Independent Urine Appearance Clear Urine Color Dark Yellow Head Head exam: Present atraumatic, normal inspection and normocephalic Eye Eye exam: Present EOMI and normal appearance Pupils: Present normal accommodation and PERRL ENT ENT exam: Present normal exam and normal oropharynx Neck Neck exam: Present full ROM; Absent lymphadenopathy, tenderness and thyromegaly Respiratory Respiratory exam: Present chest wall tenderness (tenderness left posterolateral chest wall and around chest tube) and CTAB; Absent rales, rhonchi and wheezes Cardiovascular Cardiovascular exam: Present RRR, +S1 and +S2; Absent gallop and JVD GI/Abdominal GI/Abdominal exam: Present normal bowel sounds and soft; Absent distended and tenderness Extremities Exam Extremities exam: Present full ROM and neurovascular intact; Absent pedal edema Neurological Exam Neurological exam: Present abnormal gait, alert, CN II-XII intact and oriented X3; Absent motor sensory deficit, normal gait and reflexes normal A/P Assessment and plan (1) Closed traumatic fracture of ribs of left side with pneumothorax: Status: Acute (2) 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, with behavioral disturbance: Status: Chronic (3) Coronary artery disease: Status: Acute Qualifiers: Coronary Disease-Associated Artery/Lesion type: due to calcified coronary lesion Qualified Code(s): I25.10 - Atherosclerotic heart disease of [place] coronary artery without angina pectoris; I25.84 - Coronary atherosclerosis due to calcified coronary lesion (4) Insomnia: Status: Acute Qualifiers: Insomnia type: due to other mental disorder Qualified Code(s): F51.05 - Insomnia due to other mental disorder; F99 - Mental disorder, not otherwise specified Narrative A/P Narrative: patient is clinically stable We're still waiting to get confirmation for transfer to [facility] for pleurodesis or thoracoscopy with stapling. There's been no progress in the decrease of air leak over the past 24 hours. Time Spent With Patient Time: Total time spent is greater than 50% in coordination of care (as documented) at patient's floor/unit and/or counseling patient:
[2020-01-13] MEDS: traZODone HCL 50 MG TABLET PO PRN (21:30)
[2020-01-13] MEDS: LORazepam 1 MG TABLET PO PRN (21:30)
[2020-01-13] MEDS: SENNOSIDES 1 TABLET PO SCH (21:30)
[2020-01-13] MEDS: diphenhydrAMINE 50 MG/ML VIAL IV SCH (21:30)
[2020-01-13] MEDS: TOLTERODINE 4 MG PO SCH (21:31)
[2020-01-14] MEDS: HYDROcodone/APAP 5/325MG TABLET PO PRN (00:58)
[2020-01-14] MEDS: 0.9 % SODIUM CHLORIDE 10 ML SYRINGE IV SCH (05:32)
[2020-01-14 06:49] LABS: Basophils # (Auto) 0.05 K/mcL (0.00-0.30); Basophils % (Auto) 0.6 % (0.0-2.0); Eosinophils # (Auto) 0.62 K/mcL (0.00-0.70); Hematocrit 33.4 % (40.1-51.0); Hemoglobin 10.9 g/dL (13.7-17.5); Lymphocytes # (Auto) 1.32 K/mcL (1.50-4.80); Lymphocytes % (Auto) 17.1 % (15.5-49.0); Mean Cell Volume 90.5 fL (80.0-100.0); Mean Corpuscular HGB Conc 32.6 g/dL (31.0-36.0); Mean Platelet Volume 8.7 fL (7.4-10.4); Monocytes # (Auto) 0.72 K/mcL (0.10-0.90); Monocytes % (Auto) 9.3 % (1.0-12.0); Platelet Count 289 K/mcL (140-440); RBC 3.69 M/mcL (4.63-6.08); Red Cell Distribution Width 12.3 % (11.5-14.5); WBC 7.7 K/mcL (4.50-11.00)
== END 2020-01-14 06:24 | disposition short-term general hospital (02) | DRG 200 ==
LOC: ED 12:48 → MEDSUR 17:55
PROVIDERS: ADMIT Family Medicine Adult Medicine; ATTEND Family Medicine Adult Medicine